=== PATIENT | male | born 1980 | race Caucasian/White ===

== ENCOUNTER 2022-07-30 11:20 | Outpatient (OUT) | payer OTHER, SELFPAY ==
--- NOTE | 2022-07-30 11:21 | XR_ITS ---
The [address] [address] Patient Name: LEONARDO BABIN MRN: [id number] date: 1980 Sex: M Assigned Patient Location: [facility] Current Patient Location: [facility] Accession/Order Number: [id number] Exam Date: 07/30/2022 11:21 Report Date: 07/31/2022 06:36 At the request of: DEMETRIS HERRING Procedure: XR foot LT min 3V PROCEDURE: XR foot LT min 3V HISTORY: LEFT FOOT PAIN COMPARISON: XR foot left 07/16/2022 FINDINGS: BONES:Pinning of the fifth toe with wire extending through the phalanges and into the neck of the fifth metatarsal. Stable alignment and suspected ongoing bone healing of fractures at the neck of third and fourth metatarsals. Stable, separate ossification at base of fifth metatarsal; ununited secondary ossification center versus sequela of remote fracture. SOFT TISSUES:Mild dorsal lateral soft tissue swelling. EFFUSION:None visible. OTHER: Negative. IMPRESSION: 1. Stable wire fixation of the fifth toe. 2. Stable healing fractures and chronic changes. Electronically authenticated by: LAYTON SMALL Date: 07/31/2022 06:36
== END 2022-07-30 11:21 ==
LOC: RAD 11:20
PROVIDERS: PCP Family Medicine; Visit Provider Physician Assistant
DX: S97.82XS Crushing injury of left foot, sequela (principal); S92.332S Displaced fracture of third metatarsal bone, left foot, sequela; S92.342S Displaced fracture of fourth metatarsal bone, left foot, sequela; S92.352S Displaced fracture of fifth metatarsal bone, left foot, sequela; X58.XXXS Exposure to other specified factors, sequela
CPT/HCPCS: 73630

== ENCOUNTER 2022-08-20 10:50 | Outpatient (OUT) | payer OTHER, SELFPAY ==
--- NOTE | 2022-08-20 10:51 | XR_ITS ---
The [address] [address] Patient Name: LEONARDO BABIN MRN: [id number] date: 1980 Sex: M Assigned Patient Location: [facility] Current Patient Location: [facility] Accession/Order Number: [id number] Exam Date: 08/20/2022 10:53 Report Date: 08/20/2022 12:28 At the request of: VIKI DURAN Procedure: XR foot LT min 3V EXAM: XR foot LT min 3V HISTORY: LEFT FOOT PAIN COMPARISON: 08/11/2022. TECHNIQUE: 3 views left foot. FINDINGS/IMPRESSION: Stable alignment and position of left third, fourth metatarsal neck fractures. Slight increase continued healing, with probable developing ununited fragment at the lateral margin of the fourth. Removal of K wire from the left fifth digit with mild residual osteopenia at the fifth metatarsal head. No displaced fracture. Fifth metatarsal base deformity is again seen with increasing cortication along the margins of the fragments with ununited base. No other interval acute process. Electronically authenticated by: CHONG GARAY Date: 08/20/2022 12:28
== END 2022-08-20 10:51 | disposition home or self-care (01) ==
LOC: RAD 10:51
PROVIDERS: PCP Family Medicine; Visit Provider Physician Assistant
DX: S97.82XS Crushing injury of left foot, sequela (principal)
CPT/HCPCS: 73630

== ENCOUNTER 2022-09-24 15:23 | Outpatient (OUT) | payer OTHER, SELFPAY ==
--- NOTE | 2022-09-24 15:25 | XR_ITS ---
The [address] [address] Patient Name: LEONARDO BABIN MRN: [id number] date: 1980 Sex: M Assigned Patient Location: [facility] Current Patient Location: Accession/Order Number: [id number] Exam Date: 09/24/2022 15:30 Report Date: 09/25/2022 07:53 At the request of: VIKI DURAN Procedure: XR foot LT min 3V PROCEDURE: XR foot LT min 3V COMPARISON: 08/20/2022 HISTORY: LEFT FOOT PAIN FINDINGS: BONES:Stable fractures involving the neck of the third and fourth metatarsals. Stable transverse intra-articular fracture base of the fifth metatarsal with no interval bony bridging. Stable fracture dorsal proximal navicular. SOFT TISSUES:Negative. No visible soft tissue swelling. EFFUSION:None visible. OTHER: Negative. XR/XR foot LT min 3V IMPRESSION: Multiple stable fractures as detailed above Electronically authenticated by: LAUREN BAÑUELOS Date: 09/25/2022 07:53
== END 2022-09-24 15:24 | disposition home or self-care (01) ==
LOC: RAD 15:23
PROVIDERS: PCP Family Medicine; Visit Provider Physician Assistant
DX: S92.332D Displaced fracture of third metatarsal bone, left foot, subsequent encounter for fracture with routine healing (principal); S92.342D Displaced fracture of fourth metatarsal bone, left foot, subsequent encounter for fracture with routine healing; S92.352D Displaced fracture of fifth metatarsal bone, left foot, subsequent encounter for fracture with routine healing; S92.252D Displaced fracture of navicular [scaphoid] of left foot, subsequent encounter for fracture with routine healing; X58.XXXD Exposure to other specified factors, subsequent encounter
CPT/HCPCS: 73630

== ENCOUNTER 2022-09-29 17:44 | Outpatient (REF) | payer OTHER, SELFPAY | END 2022-09-29 17:45 | disposition home or self-care (01) | LOC: LAB 17:44 | PROVIDERS: PCP Family Medicine; Visit Provider Family Medicine | DX: T63.301A Toxic effect of unspecified spider venom, accidental (unintentional), initial encounter (principal); L03.90 Cellulitis, unspecified | CPT/HCPCS: 87070; 87150; 87186 ==

== ENCOUNTER 2022-12-11 09:02 | Outpatient (OUT) | payer OTHER, SELFPAY ==
--- NOTE | 2022-12-11 | XR_ITS ---
The [address] [address] Patient Name: LEONARDO BABIN MRN: [id number] date: 1980 Sex: M Assigned Patient Location: [facility] Current Patient Location: [facility] Accession/Order Number: [id number] Exam Date: 12/11/2022 09:04 Report Date: 12/11/2022 15:18 At the request of: SAYDA NORWOOD Procedure: XR foot LT min 3V STUDY: XR foot LT min 3V, [id number] HISTORY: LEFT FOOT PAIN COMPARISON: Left foot x-rays 09/24/2022, 08/20/2022. CT of the left foot for 08/11/2022. FINDINGS: Alignment at the healed fractures of the heads of the third and fourth metatarsals, similar. 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 Small focus of ossification along the medial aspect head of the fifth metatarsal, similar. Unfused dorsal navicular ossicle, similar. 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 No new or worsening osseous abnormality demonstrated. XR/XR foot LT min 3V IMPRESSION: Similar appearance of the left foot compared with 09/24/2022. Electronically authenticated by: AHMET STEWART Date: 12/11/2022 15:18
== END 2022-12-11 09:03 | disposition home or self-care (01) ==
LOC: RAD 09:02
PROVIDERS: PCP Family Medicine; Visit Provider Podiatrist Foot & Ankle Surgery
DX: S97.82XS Crushing injury of left foot, sequela (principal); M79.672 Pain in left foot
CPT/HCPCS: 73630

== ENCOUNTER 2023-05-15 07:58 | Outpatient (OUT) | payer OTHER, SELFPAY ==
--- OUTSIDE RECORDS SUMMARY | 2023-05-15 08:03 | XMS_ITS | CCD ---
Author Organization [facility] Care Team Providers Care Motion Study Technician Name Role Phone ANNIE ., DR PETERSEN Primary Care Unavailable MISC, DR MUNOZ Attending Unavailable MISC, DR MUNOZ Admitting Unavailable SAYDA NORWOOD Consulting Unavailable HOY ., DR PETERSEN Primary Care Unavailable SAYDA NORWOOD Attending Unavailable MARYANDER PETER Estrada Admitting Unavailable WEST, DR LAUREN Andrews Consulting Unavailable HOY ., DR PETERSEN Primary Care Unavailable HIGHLANDERSAYDA Attending Unavailable HIGHLANDER PETER Estrada Admitting Unavailable HIGHLANDERSAYDA Consulting Unavailable RAKEL ANGELES Consulting Unavailable NEVAEH ., DEMETRIS BRODERICK Consulting Unavailable SHARP, KATELYN Consulting Unavailable TENA II, CARLOS Consulting Unavailable MERGIUSEPPE PARKER Consulting Unavailable MISC, DR MUNOZ Consulting Unavailable ANNIE ., DR PETERSEN Primary Care Unavailable MISC, DR MUNOZ Attending Unavailable MISC, DR MUNOZ Admitting Unavailable HOY ., DR PETERSEN Consulting Unavailable HOY ., DR PETERSEN Primary Care Unavailable HOY ., DR PETERSEN Attending Unavailable HOY ., DR PETERSEN Admitting Unavailable HOY ., DR PETERSEN Consulting Unavailable HOY ., DR PETERSEN Primary Care Unavailable HOY ., DR PETERSEN Attending Unavailable HOY ., DR PETERSEN Admitting Unavailable WEST, DR LAUREN Andrews Consulting Unavailable HOY ., DR PETERSEN Primary Care Unavailable JESUS VALDEZ Attending Unavailable JESUS VALDEZ Admitting Unavailable ZIEBCECIL, DR LAYTON Mari Consulting Unavailable JESUS VALDEZ Consulting Unavailable VIKI DURAN Attending Unavailable VIKI DURAN Admitting Unavailable HOY ., DR PETERSEN Primary Care Unavailable ZIEBER, DR LAYTON Mari Consulting Unavailable HOY ., DR PETERSEN Primary Care Unavailable VIKI DURAN Attending Unavailable VIKI DURAN Admitting Unavailable VIKI DURAN Consulting Unavailable MISC, DR MUNOZ Consulting Unavailable HORajwinder ., DR PETERSEN Primary Care Unavailable MISC, DR DOCTOR Attending Unavailable MISNanette, DR MUNOZ Admitting Unavailable DR LAYTON SMALL Consulting Unavailable Allergies Allergy Classification Reported Allergen(s) Allergy Type Date of Onset Reaction(s) Facility (1 source) Cephalexin Drug Allergy [facility] (1 source) Shellfish Drug allergy (disorder) [facility] Problems Active Problems Problem Classification Problem Date Documented Da te Episodic/Chronic Crushing injury or internal injury (1 source) Crushing injury of left foot, initial encounter; Translations: [CRUSHING INJURY LEFT FOOT INITIAL] Onset: 07-02-2022 Episodic Essential hypertension (1 source) Essential (primary) hypertension; Translations: [ESSENTIAL PRIMARY HYPERTENSION] Onset: 06-30-2022 Chronic Fracture of lower limb (13 sources) Displaced fracture of fifth metatarsal bone, left foot, initial encounter for closed fracture; Translations: [Fracture of unspecified metatarsal bone(s), left foot, initial encounter for closed fracture] Onset: 05-28-2022 Episodic Other lower respiratory disease (4 sources) Interstitial pulmonary disease, unspecified; Translations: [INTERSTITIAL PULMONARY DISEASE UNS] Onset: 08-09-2021 Chronic Unclassified (3 sources) CONTACT W/AND (SUSP) EXPOS COVID-19; Translations: [CONTACT W/AND (SUSP) EXPOS COVID-19] Onset: 01-19-2022 Unclassified (1 source) POST COVID-19 CONDITION UNSPECIFIED; Translations: [POST COVID-19 CONDITION UNSPECIFIED] Onset: 09-04-2021 Past or Other Problems Problem Classification Problem Date Documented Da te Episodic/Chronic Other lower respiratory disease (5 sources) Dyspnea, unspecified; Translations: [DYSPNEA UNSPECIFIED] Onset: 09-03-2021 Episodic Other screening for suspected conditions (not mental disorders or infectious disease) (1 source) Encounter for screening for malignant neoplasm of prostate; Translations: [ENC SCREEN MALIG NEOPLASM PROSTATE] Onset: 01-14-2022 Episodic Unclassified (1 source) CONTACT W/AND (SUSP) EXPOS COVID-19; Translations: [CONTACT W/AND (SUSP) EXPOS COVID-19] Onset: 01-14-2022 Results Test Name Value Interpretation Reference Range Facility CBC AUTO DIFFon 06-25-2022 BASO # 0.0 103/ul Normal 0.0-0.1 [facility] Comment on above: Performed By: #### C BC #### [facility] [address] [address] [address] Yanira Avery Basophils/100 WBC (Bld) 0.4 % Normal 0.2-2.0 [facility] Comment on above: Performed By: #### C BC #### [facility] [address] [address] [address] Yanira Avery EO # 0.1 103/ul Normal 0.0-0.7 [facility] Comment on above: Performed By: #### C BC #### [facility] [address] [place] [address] Dr. Yanira Avery Eosinophils/100 WBC (Bld) 1.3 % Normal 0.9-7.0 [facility] Comment on above: Performed By: #### C BC #### [facility] [address] [place] [address] Dr. Yanira Avery Erythrocyte distribution width (RBC) [Ratio] 12.3 % Normal 11.0-15.0 [facility] Comment on above: Performed By: #### C BC #### [facility] [address] [place] [address] Dr. Yanira Avery Hematocrit (Bld) [Volume fraction] 47.0 % Normal 42.0-54.0 [facility] Comment on above: Performed By: #### C BC #### [facility] [address] [place] [address] Dr. Yanira Avery Hemoglobin (Bld) [Mass/Vol] 16.3 g/dL Normal 14.0-18.0 [facility] Comment on above: Performed By: #### C BC #### [facility] [address] [place] [address] Dr. Yanira Avery IG # 0.01 10e3/ul Normal 0.00-0.03 [facility] Comment on above: Performed By: #### C BC #### [facility] [address] [place] [address] Dr. Yanira Avery IG % 0.1 % Normal 0.0-0.5 [facility] Comment on above: Performed By: #### C BC #### [facility] [address] [place] [address] Dr. Yanira Avery LYMPH # 1.9 103/ul Normal 1.2-3.8 [facility] Comment on above: Performed By: #### C BC #### [facility] [address] [place] [address] Dr. Yanira Avery Lymphocytes/100 WBC (Bld) 26.6 % Normal 20.5-60.0 [facility] Comment on above: Performed By: #### C BC #### [facility] [address] [place] [address] Dr. Yanira Avery MANUAL DIFF REQ NO Normal [facility] Comment on above: Performed By: #### C BC #### [facility] [address] [place] [address] Dr. Yanira Avery MCH (RBC) [Entitic mass] 30.3 pg Normal 25.9-34.0 [facility] Comment on above: Performed By: #### C BC #### [facility] [address] [place] [address] Dr. Yanira Avery MCHC (RBC) [Mass/Vol] 34.7 g/dL Normal 29.9-35.2 [facility] Comment on above: Performed By: #### C BC #### [facility] [address] [place] [address] Dr. Yanira Avery MCV (RBC) [Entitic vol] 87.4 fL Normal 80.0-94.0 [facility] Comment on above: Performed By: #### C BC #### [facility] [address] [place] [address] Dr. Yanira Avery MONO # 0.5 103/ul Normal 0.3-0.8 [facility] Comment on above: Performed By: #### C BC #### [facility] [address] [place] [address] Dr. Yanira Avery Monocytes/100 WBC (Bld) 7.5 % Normal 1.7-12.0 [facility] Comment on above: Performed By: #### C BC #### [facility] [address] [address] [address] Yanira Avery NEUT # 4.5 103/ul Normal 1.4-6.5 [facility] Comment on above: Performed By: #### C BC #### [facility] [address] [address] [address] Yanira Avery Neutrophils/100 WBC (Bld) 64.1 % Normal 43.0-75.0 [facility] Comment on above: Performed By: #### C BC #### [facility] [address] [place] [address] Dr. Yanira Avery Platelet mean volume (Bld) [Entitic vol] 9.9 fL Normal 9.5-13.5 [facility] Comment on above: Performed By: #### C BC #### [facility] [address] [place] [address] Dr. Yanira Avery PLT 264 103/ul Normal 150-450 [facility] Comment on above: Performed By: #### C BC #### [facility] [address] [place] [address] Dr. Yanira Avery RBC 5.38 106/ul Normal 4.70-6.10 [facility] Comment on above: Performed By: #### C BC #### [facility] [address] [place] [address] Dr. Yanira Avery WBC 7.0 103/ul Normal 4.0-11.0 [facility] Comment on above: Performed By: #### C BC #### [facility] [address] [place] [address] Dr. Yanira Avery POINT OF CARE GLUCOSEon 05-0 Glucose [Mass/Vol] 98 mg/dL Normal 74-106 [facility] Comment on above: Performed By: #### A 1C #### [facility] [address] [place] [address] Dr. Yanira Avery Glucose [Mass/Vol] 97 mg/dL Normal 74-106 [facility] Comment on above: Performed By: #### P OCGLUC #### [facility] [address] [place] [address] Dr. Yanira Avery XR FOOT LT 2Von 06-25-2022 XR FOOT LT 2V EXAM: XR FOOT LT 2V HISTORY: Pain COMPARISON: 06/18/2022 TECHNIQUE: 1 minute and 7 seconds of fluoroscopy. 11 images 67.7 seconds of fluoroscopy FINDINGS: Interval reduction and pinning of the fourth metatarsal phalangeal joint dislocation. Stable fractures head of the third and fourth metatarsals IMPRESSION: Reduction and pinning of the fifth metatarsal phalangeal joint dislocation Electronically authenticated by: LAUREN BAÑUELOS Date: 2022-06-25 18:09 Normal [facility] PROF CHEM 8 (BAS METB)on Anion gap [Moles/Vol] 11.6 mmol/L Normal [facility] Comment on above: Performed By: #### A 1C #### [facility] [address] [place] [address] Dr. Yanira Avery Calcium [Mass/Vol] 9.7 mg/dL Normal 8.5-10.1 [facility] Comment on above: Performed By: #### A 1C #### [facility] [address] [place] [address] Dr. Yanira Avery Chloride [Moles/Vol] 102 mmol/L Normal 98-107 [facility] Comment on above: Performed By: #### A 1C #### [facility] [address] [place] [address] Dr. Yanira Avery CO2 [Moles/Vol] 30.9 mmol/L Normal 21.0-32.0 [facility] Comment on above: Performed By: #### A 1C #### [facility] [address] [place] [address] Dr. Yanira Avery Creatinine [Mass/Vol] 1.04 mg/dL Normal 0.70-1.30 [facility] Comment on above: Performed By: #### A 1C #### [facility] [address] [place] [address] Dr. Yanira Avery EGFR-AF ALBANIAN >60 Normal >=60 [facility] Comment on above: Performed By: #### A 1C #### [facility] [address] [place] [address] Dr. Yanira Avery EGFR-NON AF ALBANIAN >60 Normal >=60 [facility] Comment on above: Performed By: #### A 1C #### [facility] [address] [place] [address] Dr. Yanira Avery Glucose [Mass/Vol] 103 mg/dL Normal 74-106 [facility] Comment on above: Performed By: #### A 1C #### [facility] [address] [place] [address] Dr. Yanira Avery Potassium [Moles/Vol] 4.5 mmol/L Normal 3.5-5.1 [facility] Comment on above: Performed By: #### A 1C #### [facility] [address] [place] [address] Dr. Yanira Avery Sodium [Moles/Vol] 140 mmol/L Normal 136-145 [facility] Comment on above: Performed By: #### A 1C #### [facility] [address] [place] [address] Dr. Yanira Avery Urea nitrogen [Mass/Vol] 14.0 mg/dL Normal 7.0-18.0 [facility] Comment on above: Performed By: #### A 1C #### [facility] [address] [place] [address] Dr. Yanira Avery Urea nitrogen/Creatinine [Mass ratio] 13.5 mg/mg Normal [facility] Comment on above: Performed By: #### A 1C #### [facility] [address] [place] [address] ANKLE LT WO CONon 023 CT ANKLE LT WO CON EXAMINATION: CT FOOT LT WO CON, CT ANKLE LT WO CON HISTORY: Crushing injury COMPARISON: XR foot left 05/28/2022 TECHNIQUE: Multi-planar CT images were created without IV contrast. Dose reduction techniques were achieved by using automated exposure control and/or adjustment of mA and/or kV according to patient size and/or use of iterative reconstruction technique. FINDINGS: BONES: Nonspecific fracture involving anterior inferior lateral corner of the cuboid. Nondisplaced acute fracture across the neck of second and third metatarsals. Mildly angulated fracture involving the neck of the fourth metatarsal. Dorsal dislocation of the fifth proximal phalanx in relation to the head of the fifth metatarsal. SOFT TISSUES: Mild soft tissue swelling and edema throughout the foot. No radiopaque foreign body. EFFUSION: None visible. OTHER: Negative. IMPRESSION: 1. Multifocal fractures as detailed above. 2. Dorsal dislocation of the fifth metatarsophalangeal joint. 3. Multifocal soft tissue swelling and edema. Electronically authenticated by: LAYTONJESSE SMALL Date: 2022-05-28 13:09 Normal [facility] Covid-19 PCR (CVDTB)on 12-24 SARS-CoV-2 (COVID-19) RNA EM+probe Ql (Unsp spec) Not detected Normal NOT DETECTED [facility] Comment on above: Result Comment: This test is not yet approved or cleared by the [place] FDA. When there are no FDA-approved or cleared tests available, and other criteria are met, FDA can make tests available under an emergency access mechanism called an Emergency Use Authorization (EUA). The EUA for this test is supported by the [employer] Controller of Health and Human Service's (HHS's) declaration that circumstances exist to justify the emergency use of in vitro diagnostics for the detection and/or diagnosis of the virus that causes COVID-19. This EUA will remain in effect (meaning this test can be used) for the duration of the COVID-19 declaration justifying emergency of IVDs, unless it is terminated or revoked by FDA (after which the test may no longer be used). When diagnostic testing is negative, the possibility of a false negative should be considered in the context of a patient's recent exposures and the presence of clinical signs and symptoms consistent with SARS-CoV-2. Performed By: #### C VDTBH #### [facility] [address] [place] [address] Dr. Yanira Avery INFLUENZA A AND B AGon 01-14 INFLUANEGH SEE BELOW Normal [facility] Comment on above: Result Comment: Nega tive for Flu A protein angiten. Infection due to Flu A cannot be ruled out. Flu A angiten in the sample may be below the detection limit of the test. Performed By: #### I NFLUAB #### [facility] [address] [place] [address] Dr. Yanira Avery [facility] SEE BELOW Normal [facility] Comment on above: Result Comment: Nega tive for Flu B protein antigen. Infection due to Flu B cannot be ruled out. Flu B antigen in the sample may be below the detection limit of the test. Performed By: #### I NFLUAB #### [facility] [address] [place] [address] Dr. Yanira Avery INFLUENZA A AG Negative Normal NEGATIVE SEE COMMENT [facility] Comment on above: Performed By: #### I NFLUAB #### [facility] [address] [place] [address] Dr. Yanira Avery INFLUENZA B AG Negative Normal NEGATIVE SEE COMMENT [facility] Comment on above: Performed By: #### I NFLUAB #### [facility] [address] [place] [address] Dr. Yanira Avery INTERNAL CONTROLS Within Normal Limits Normal Wi thin Normal Limits [facility] Comment on above: Performed By: #### I NFLUAB #### [facility] [address] [place] [address] Dr. Yanira Avery INSULINon 01-12-2022 Insulin 18.3 uIU/mL Normal 2.6-24.9 [facility] Comment on above: Performed By: #### I NSULIN #### [facility] [address] [place] [address] Dr. Yanira Avery CBC AUTO DIFFon 01-10-2022 BASO # 0.0 103/ul Normal 0.0-0.1 [facility] Comment on above: Performed By: #### C BC #### [facility] [address] [place] [address] Dr. Yanira Avery Basophils/100 WBC (Bld) 0.3 % Normal 0.2-2.0 [facility] Comment on above: Performed By: #### C BC #### [facility] [address] [place] [address] Dr. Yanira Avery EO # 0.1 103/ul Normal 0.0-0.7 [facility] Comment on above: Performed By: #### C BC #### [facility] [address] [place] [address] Dr. Yanira Avery Eosinophils/100 WBC (Bld) 1.4 % Normal 0.9-7.0 [facility] Comment on above: Performed By: #### C BC #### [facility] [address] [place] [address] Dr. Yanira Avery Erythrocyte distribution width (RBC) [Ratio] 12.3 % Normal 11.0-15.0 [facility] Comment on above: Performed By: #### C BC #### [facility] [address] [place] [address] Dr. Yanira Avery Hematocrit (Bld) [Volume fraction] 44.4 % Normal 42.0-54.0 [facility] Comment on above: Performed By: #### C BC #### [facility] [address] [place] [address] Dr. Yanira Avery Hemoglobin (Bld) [Mass/Vol] 15.5 g/dL Normal 14.0-18.0 [facility] Comment on above: Performed By: #### C BC #### [facility] [address] [place] [address] Dr. Yanira Avery IG # 0.02 10e3/ul Normal 0.00-0.03 [facility] Comment on above: Performed By: #### C BC #### [facility] [address] [place] [address] Dr. Yanira Avery IG % 0.3 % Normal 0.0-0.5 [facility] Comment on above: Performed By: #### C BC #### [facility] [address] [place] [address] Dr. Yanira Avery LYMPH # 2.0 103/ul Normal 1.2-3.8 [facility] Comment on above: Performed By: #### C BC #### [facility] [address] [place] [address] Dr. Yanira Avery Lymphocytes/100 WBC (Bld) 31.3 % Normal 20.5-60.0 [facility] Comment on above: Performed By: #### C BC #### [facility] [address] [place] [address] Dr. Yanira Avery MANUAL DIFF REQ NO Normal [facility] Comment on above: Performed By: #### C BC #### [facility] [address] [place] [address] Dr. Yanira Avery MCH (RBC) [Entitic mass] 30.5 pg Normal 25.9-34.0 [facility] Comment on above: Performed By: #### C BC #### [facility] [address] [place] [address] Dr. Yanira Avery MCHC (RBC) [Mass/Vol] 34.9 g/dL Normal 29.9-35.2 [facility] Comment on above: Performed By: #### C BC #### [facility] [address] [place] [address] Dr. Yanira Avery MCV (RBC) [Entitic vol] 87.4 fL Normal 80.0-94.0 [facility] Comment on above: Performed By: #### C BC #### [facility] [address] [place] [address] Dr. Yanira Avery MONO # 0.5 103/ul Normal 0.3-0.8 [facility] Comment on above: Performed By: #### C BC #### [facility] [address] [place] [address] Dr. Yanira Avery Monocytes/100 WBC (Bld) 8.0 % Normal 1.7-12.0 [facility] Comment on above: Performed By: #### C BC #### [facility] [address] [place] [address] Dr. Yanira Avery NEUT # 3.7 103/ul Normal 1.4-6.5 [facility] Comment on above: Performed By: #### C BC #### [facility] [address] [place] [address] Dr. Yanira Avery Neutrophils/100 WBC (Bld) 58.7 % Normal 43.0-75.0 [facility] Comment on above: Performed By: #### C BC #### [facility] [address] [place] [address] Dr. Yanira Avery Platelet mean volume (Bld) [Entitic vol] 10.0 fL Normal 9.5-13.5 [facility] Comment on above: Performed By: #### C BC #### [facility] [address] [place] [address] Dr. Yanira Avery PLT 237 103/ul Normal 150-450 [facility] Comment on above: Performed By: #### C BC #### [facility] [address] [place] [address] Dr. Yanira Avery RBC 5.08 106/ul Normal 4.70-6.10 [facility] Comment on above: Performed By: #### C BC #### [facility] [address] [place] [address] Dr. Yanira Avery WBC 6.2 103/ul Normal 4.0-11.0 [facility] Comment on above: Performed By: #### C BC #### [facility] [address] [place] [address] Dr. Yanira Avery FREE T3on 01-10-2022 FREE T3 3.68 pg/mlL Normal 2.18-3.98 [facility] Comment on above: Performed By: #### A 1C #### [facility] [address] [place] [address] Dr. Yanira Avery GLYCOHEMOGLOBIN A1Con 2021 ADA RECOMMENDATION SEE BELOW Normal [facility] Comment on above: Result Comment: ADA RECOMMENDED LIMIT 4.0 - 6.0 ADA THERAPEUTIC TARGET < 7.0 ACTION SUGGESTED > 7.0 Performed By: #### A 1C #### [facility] [address] [place] [address] Dr. Yanira Avery Glucose [Mass/Vol] 117 mg/dL Normal [facility] Comment on above: Performed By: #### A 1C #### [facility] [address] [place] [address] Dr. Yanira Avery HbA1c (Bld) [Mass fraction] 5.7 % Normal 4.5-6.2 [facility] Comment on above: Performed By: #### A 1C #### [facility] [address] [address] [address] Yanira Avery LIPID PROFILEon 01-10-2022 CHOL-HDL RATIO NORM SEE BELOW Normal [facility] Comment on above: Result Comment: 3.3 - 4.4 LOW RISK 4.4 - 7.1 AVERAGE RISK 7.1 - 11.0 MODERATE RISK >11.0 HIGH RISK Performed By: #### A 1C #### [facility] [address] [address] [address] Yanira Avery Cholesterol [Mass/Vol] 187 mg/dL Normal <=200 [facility] Comment on above: Performed By: #### A 1C #### [facility] [address] [address] [address] Yanira Avery Cholesterol in HDL [Mass/Vol] 43 mg/dL Normal 40-60 [facility] Comment on above: Performed By: #### A 1C #### [facility] [address] [address] [address] Yanira Avery Cholesterol in LDL [Mass/Vol] 115.0 mg/dL Normal [facility] Comment on above: Performed By: #### A 1C #### [facility] [address] [address] [address] Yanira Avery Cholesterol.total/Ch olesterol in HDL [Mass ratio] 4.3 {ratio} Normal [facility] Comment on above: Performed By: #### A 1C #### [facility] [address] [address] [address] Yanira Avery HDL NORMAL > or = 60 mg/dl - LO W CARDIOVASCULAR RISK <40 mg/dl - HIGH CARDIOVASCULAR RISK Normal [facility] Comment on above: Performed By: #### A 1C #### [facility] [address] [address] [address] Yanira Avery LDL CALC NORMAL SEE BELOW Normal [facility] Comment on above: Result Comment: <100 mg/dl OPTIMAL 100 - 129 mg/dl NEAR OR ABOVE OPTIMAL 130 - 159 mg/dl BORDERLINE HIGH 160 - 189 mg/dl HIGH >190 mg/dl VERY HIGH Performed By: #### A 1C #### [facility] [address] [address] [address] Yanira Avery Triglyceride [Mass/Vol] 145 mg/dL Normal <=150 [facility] Comment on above: Performed By: #### A 1C #### [facility] [address] [place] [address] Dr. Yanira Avery VLDL CALC 29.0 mg/dL Normal [facility] Comment on above: Performed By: #### A 1C #### [facility] [address] [place] [address] Dr. Yanira Avery PROF 14(COMP METB)on 022 Albumin [Mass/Vol] 3.9 g/dL Normal 3.4-5.0 [facility] Comment on above: Performed By: #### A 1C #### [facility] [address] [place] [address] Dr. Yanira Avery Albumin/Globulin [Mass ratio] 1.1 {ratio} Normal [facility] Comment on above: Performed By: #### A 1C #### [facility] [address] [place] [address] Dr. Yanira Avery ALP [Catalytic activity/Vol] 89 U/L Normal 46-116 [facility] Comment on above: Performed By: #### A 1C #### [facility] [address] [place] [address] Dr. Yanira Avery ALT [Catalytic activity/Vol] 28 U/L Normal 16-63 [facility] Comment on above: Performed By: #### A 1C #### [facility] [address] [place] [address] Dr. Yanira Avery Anion gap [Moles/Vol] 9.5 mmol/L Normal [facility] Comment on above: Performed By: #### A 1C #### [facility] [address] [place] [address] Dr. Yanira Avery AST [Catalytic activity/Vol] 13 U/L Critically low 15-37 [facility] Comment on above: Performed By: #### A 1C #### [facility] [address] [place] [address] Dr. Yanira Avery Bilirubin [Mass/Vol] 0.6 mg/dL Normal 0.2-1.0 [facility] Comment on above: Performed By: #### A 1C #### [facility] [address] [address] [address] Yanira Avery Calcium [Mass/Vol] 9.2 mg/dL Normal 8.5-10.1 [facility] Comment on above: Performed By: #### A 1C #### [facility] [address] [address] [address] Yanira Avery Chloride [Moles/Vol] 103 mmol/L Normal 98-107 [facility] Comment on above: Performed By: #### A 1C #### [facility] [address] [address] [address] Yanira Avery CO2 [Moles/Vol] 30.7 mmol/L Normal 21.0-32.0 [facility] Comment on above: Performed By: #### A 1C #### [facility] [address] [place] [address] Dr. Yanira Avery Creatinine [Mass/Vol] 0.88 mg/dL Normal 0.70-1.30 [facility] Comment on above: Performed By: #### A 1C #### [facility] [address] [place] [address] Dr. Yanira Avery EGFR-AF ALBANIAN >60 Normal >=60 [facility] Comment on above: Performed By: #### A 1C #### [facility] [address] [place] [address] Dr. Yanira Avery EGFR-NON AF ALBANIAN >60 Normal >=60 [facility] Comment on above: Performed By: #### A 1C #### [facility] [address] [place] [address] Dr. Yanira Avery Globulin (S) [Mass/Vol] 3.4 g/dL Normal [facility] Comment on above: Performed By: #### A 1C #### [facility] [address] [place] [address] Dr. Yanira Avery Glucose [Mass/Vol] 109 mg/dL Critically high 74-106 [facility] Comment on above: Performed By: #### A 1C #### [facility] [address] [address] [address] Yanira Avery Potassium [Moles/Vol] 4.2 mmol/L Normal 3.5-5.1 [facility] Comment on above: Performed By: #### A 1C #### [facility] [address] [address] [address] Yanira Avery Protein [Mass/Vol] 7.3 g/dL Normal 6.4-8.2 [facility] Comment on above: Performed By: #### A 1C #### [facility] [address] [address] [address] Yanira Avery Sodium [Moles/Vol] 139 mmol/L Normal 136-145 [facility] Comment on above: Performed By: #### A 1C #### [facility] [address] [address] [address] Yanira Avery Urea nitrogen [Mass/Vol] 12.0 mg/dL Normal 7.0-18.0 [facility] Comment on above: Performed By: #### A 1C #### [facility] [address] [address] [address] Yanira Avery Urea nitrogen/Creatinine [Mass ratio] 13.6 mg/mg Normal [facility] Comment on above: Performed By: #### A 1C #### [facility] [address] [address] [address] Yanira Avery T4on 01-10-2022 T4 [Mass/Vol] 9.20 ug/dL Normal 4.50-12.10 [facility] Comment on above: Performed By: #### A 1C #### [facility] [address] [address] [address] Yanira Avery TSHon 01-10-2022 TSH 1.194 uIU/mL Normal 0.358-3.740 [facility] Comment on above: Performed By: #### A 1C #### [facility] [address] [address] [address] Yanira Avery HEMOGLOBINon 09-03-2021 Hemoglobin (Bld) [Mass/Vol] 15.2 g/dL Normal 14.0-18.0 [facility] Comment on above: Performed By: #### H GB #### [facility] [address] [address] CHEST WO CONon 08-11-2021 CT CHEST WO CON EXAMINATION: CT CHES T WO CON HISTORY: Interstitial lung disease COMPARISON: CTA chest 02/10/2021 TECHNIQUE: Axial, Coronal, and Sagittal images were created without the administration of IV contrast material. Dose reduction techniques were achieved by using automated exposure control and/or adjustment of mA and/or kV according to patient size and/or use of iterative reconstruction technique. FINDINGS: LUNGS: Thin curvilinear stranding opacities an occasional patchy opacities throughout the lungs in areas of the previously seen dense infiltrates which are suspected to represent scarring. PLEURA: No mass, effusion, or pneumothorax. VASCULATURE: No abnormality. ENRIQUETA: No mass or adenopathy. MEDIASTINUM: No mass or adenopathy. CARDIAC: No enlargement or pericardial thickening. AORTA: No aneurysm or dissection. CHEST WALL: No mass or axillary adenopathy. BONES: No bone lesion or fracture. LIMITED ABDOMEN: No suspicious findings. Limited images of the upper abdomen. OTHER: Negative. IMPRESSION: 1. Extensive thin curvilinear stranding opacities throughout the lungs suspected to represent scarring at sites of prior marked infiltrates. Discoid atelectasis and/or residual infiltrates are felt less likely. Electronically authenticated by: LAYTON SMALL Date: 2021-08-11 07:07 Normal [facility] Encounters Encounter Date Encounter Type Care Provider Facility Start: 06-30-2022 Encounter for prepro cedural cardiovascular examination SAYDA NORWOOD [facility] Start: 06-30-2022 Encounter for prepro cedural laboratory examination SAYDA NORWOOD [facility] Start: 06-25-2022 End: 06-25-[address] LAUREN BAÑUELOS Facility:[facility] Start: 06-24-2022 End: 06-25-2022 ambulatory SAYDA NORWOOD Facility:[facility] Start: 06-24-2022 End: 06-25-2022 Encounter for preprocedural cardiovascular examination SAYDA NORWOOD Facility:[facility] Start: 06-18-2022 End: 06-19-[address] LAYTON SMALL Facility:[facility] Start: 05-28-2022 End: 05-29-[address] LAUREN BAÑUELOS Facility:[facility] Start: 01-14-2022 End: 01-14-[address] NICOLA VALENCIA . Facility:[facility] Start: 01-14-2022 Encounter for genera l adult medical examination without abnormal findings DR NICOLA VALENCIA . [facility] Start: 01-10-2022 End: [address] NICOLA VALENCIA . Facility:[facility] Start: 01-10-2022 End: 2022 Encounter for general adult medical examination without abnormal findings DR NICOLA VALENCIA . Facility:[facility] Start: 09-03-2021 End: 09-04-[address] DOCTOR KELLY Facility:[facility] Start: 08-11-2021 End: 08-12-[address] NICOLA VALENCIA . Facility:[facility] Start: 08-09-2021 End: 08-10-[address] DOCTOR KELLY Facility:[facility] Procedures Date Procedure Procedure Detail Performing Clinician Start: 01-10-[address] BERNARDO VALENCIA . Comment on above: Performed By: #### P [facility] #### [facility] [address] [place] [address] Dr. Yanira Avery Plan of Treatment Date Care Activity Detail Author Start: 07-16-2022 ambulatory Ambulatory Facility:[facility] Payers Date Payer Category Payer Unknown [id number] 1978 Unknown [id number] 2..84 [id number] 1978 Unknown [id number] 2.16.84 [id number] 1978 Unknown [id number] 2.16.84 [id number] 1978 Unknown [id number] 2.16.84 [id number] 1978 Unknown [id number] 2.16.84 [id number] 1978 Unknown [id number] 2.16.84 [id number] 1978 Unknown [id number] 2.16.84 [id number] 1978 Unknown [id number] 2.16.84 [id number] 1978 Unknown [id number] 2.16.84 [id number] 1959 Private Health Insurance [id number] 1959 Unknown [id number] Clinical Note 06-25-2022 Note Date & Type Note Facility 06-25-2022 Note PROCEDURE: XR FOOT L T MIN 3 VIEWS COMPARISON: 06/25/2022 HISTORY: Pain FINDINGS: BONES:Interval reduction and pinning of the fifth metatarsal phalangeal joint dislocation. Stable fractures neck of the third and fourth metatarsals. Stable intra-articular fracture base of the fifth metatarsal. Stable likely subacute or chronic fracture medial base of the first distal phalanx SOFT TISSUES:Subcutaneous emphysema EFFUSION:None visible. OTHER: Negative. IMPRESSION: Postsurgical changes with stable fractures as detailed above Electronically authenticated by: LAUREN BAÑUELOS Date: 2022-06-25 18:11 [facility] Clinical Note 06-18-2022 Note Date & Type Note Facility 06-18-2022 Note PROCEDURE: XR FOOT L T MIN 3 VIEWS HISTORY: Pain ; follow-up left foot fractures COMPARISON: XR foot left 05/28/2022, CT foot left 05/28/2022 FINDINGS: BONES:Stable acute, mildly Fractures involving the neck of third and fourth metatarsals. Fracture involving neck of second metatarsal is not visible on today's study. Old, ununited fracture fragment at base of fifth metatarsal. Dorsal dislocation at the fifth metatarsophalangeal joint without appreciable fracture. SOFT TISSUES:No visible soft tissue swelling. EFFUSION:None visible. OTHER: Negative. IMPRESSION: 1. Stable multifocal fractures without appreciable change in alignment or radiographic evidence of early bone healing. Electronically authenticated by: LAYTON SMALL Date: 2022-06-18 14:03 [facility] Clinical Note 05-28-2022 Note Date & Type Note Facility 05-28-2022 Note PROCEDURE: XR ANKLE LT MIN 3 V, XR TIB_FIB LT 2V, XR FOOT LT MIN 3 VIEWS COMPARISON: None. HISTORY: Crushing injury FINDINGS: BONES:Irregular appearance of the inferior medial malleolus with overlying soft tissue swelling. A fracture is suspected. Contour deformity noted along the head of the third and fourth metatarsals consistent with angulated acute fractures. Intra-articular lucency identified at the base of the fifth metatarsal. Lack of overlying soft tissue swelling suggests a chronic injury. Corticated bone fragment along the dorsal proximal navicular, remote injury favored. SOFT TISSUES:Negative. No visible soft tissue swelling. EFFUSION:None visible. OTHER: Negative. IMPRESSION: Acute angulated fractures head of the third and fourth metatarsals Likely remote injuries of the fifth metatarsal and navicular, clinically correlate Possible avulsion fracture inferior medial malleolus Electronically authenticated by: LAUREN BAÑUELOS Date: 2022-05-28 11:04 [facility] Clinical Note 05-28-2022 Note Date & Type Note Facility 05-28-2022 Note PROCEDURE: XR ANKLE LT MIN 3 V, XR TIB_FIB LT 2V, XR FOOT LT MIN 3 VIEWS COMPARISON: None. HISTORY: Crushing injury FINDINGS: BONES:Irregular appearance of the inferior medial malleolus with overlying soft tissue swelling. A fracture is suspected. Contour deformity noted along the head of the third and fourth metatarsals consistent with angulated acute fractures. Intra-articular lucency identified at the base of the fifth metatarsal. Lack of overlying soft tissue swelling suggests a chronic injury. Corticated bone fragment along the dorsal proximal navicular, remote injury favored. SOFT TISSUES:Negative. No visible soft tissue swelling. EFFUSION:None visible. OTHER: Negative. IMPRESSION: Acute angulated fractures head of the third and fourth metatarsals Likely remote injuries of the fifth metatarsal and navicular, clinically correlate Possible avulsion fracture inferior medial malleolus Electronically authenticated by: LAUREN BAÑUELOS Date: 2022-05-28 11:04 [facility] Clinical Note 05-28-2022 Note Date & Type Note Facility 05-28-2022 Note PROCEDURE: XR ANKLE LT MIN 3 V, XR TIB_FIB LT 2V, XR FOOT LT MIN 3 VIEWS COMPARISON: None. HISTORY: Crushing injury FINDINGS: BONES:Irregular appearance of the inferior medial malleolus with overlying soft tissue swelling. A fracture is suspected. Contour deformity noted along the head of the third and fourth metatarsals consistent with angulated acute fractures. Intra-articular lucency identified at the base of the fifth metatarsal. Lack of overlying soft tissue swelling suggests a chronic injury. Corticated bone fragment along the dorsal proximal navicular, remote injury favored. SOFT TISSUES:Negative. No visible soft tissue swelling. EFFUSION:None visible. OTHER: Negative. IMPRESSION: Acute angulated fractures head of the third and fourth metatarsals Likely remote injuries of the fifth metatarsal and navicular, clinically correlate Possible avulsion fracture inferior medial malleolus Electronically authenticated by: LAUREN BAÑUELOS Date: 2022-05-28 11:04 [facility] Summary Purpose Family History No Family History Records Found Advance Directives No Advanced Directives Records Found Additional Source Comments (unrecognized sect ion and content) No Status Records Found INFORMATION SOURCE (unrecogn ized section and content) DATE CREATED AUTHOR 07/06/2022 [facility] FOR RECORDS PERTAINING TO PATIENTS WHO ARE OR HAVE BEEN ENROLLED IN A CHEMICAL DEPENDENCY/SUBSTANCEABUSE PROGRAM, SOME INFORMATION MAY BE OMITTED. This clinical summary was aggregated from multiple sources. Caution should be exercised in using it in the provision of clinical care. This summary normalizes information from multiple sources, and as a consequence, information in this document may materially change the coding, format and clinical context of patient data. In addition, data may be omitted in some cases. CLINICAL DECISIONS SHOULD BE BASED ON THE PRIMARY CLINICAL RECORDS. Directly [facility]. provides no warranty or guarantee of the accuracy or completeness of information in this document.
[2023-05-15 08:22] LABS: Basophils Percent Auto 0.4 % (0.2-2.0); Eosinophils Absolute Auto 0.1 10^3/uL (0.0-0.7); Eosinophils Percent Auto 1.6 % (0.9-7.0); Hematocrit 44.6 % (42.0-54.0); Hemoglobin 15.2 g/dL (14.0-18.0); Immature Granulocytes Abs Auto 0.01 10^3/uL (0.00-0.03); Immature Granulocytes Pct Auto 0.2 % (0.0-0.5); Lymphocytes Percent Auto 34.3 % (20.5-60.0); Mean Corpuscular HGB Conc 34.1 g/dL (29.9-35.2); Mean Corpuscular Volume 90.8 fL (80.0-94.0); Mean Platelet Volume 9.9 fL (9.5-13.5); Monocytes Absolute Auto 0.5 10^3/uL (0.3-0.8); Monocytes Percent Auto 8.1 % (1.7-12.0); Neutrophils Absolute Auto 3.2 10^3/uL (1.4-6.5); Neutrophils Percent Auto 55.4 % (43.0-75.0); Platelet Count 229 10^3/uL (150-450); Red Blood Count 4.91 10^6/uL (4.70-6.10); Red Cell Distribution Width 12.2 % (11.0-15.0); White Blood Count 5.7 10^3/uL (4.0-11.0)
[2023-05-15 08:35] LABS: Estimated Average Glucose 114 mg/dL; Glycohemoglobin A1C 5.6 % (4.5-6.2)
[2023-05-15 09:09] LABS: Alanine Aminotransferase 27 U/L (16-63); Albumin Level 3.7 g/dL (3.4-5.0); Alkaline Phosphatase 78 U/L (46-116); Aspartate Amino Transferase 15 U/L (15-37); BUN Creatinine Ratio 11.5; Bilirubin Total 0.6 mg/dL (0.2-1.0); Carbon Dioxide 31.4 mmol/L (21.0-32.0); Chloride 103 mmol/L (98-107); Chol HDL Ratio 4.4; Cholesterol 190 mg/dL (<=200); Estimated GFR (African America >60 (>=60); Estimated GFR (Non-African Ame >60 (>=60); Free T3 3.04 pg/mL (2.18-3.98); Globulin 3.8 g/dL; Glucose 104 mg/dL (74-106); HDL Cholesterol 43 mg/dL (40-60); Potassium 4.4 mmol/L (3.5-5.1); Sodium 141 mmol/L (136-145); Thyroid Stimulating Hormone 1.524 uIU/mL (0.358-3.740); Total Protein 7.5 g/dL (6.4-8.2); Triglycerides 107 mg/dL (<=150); VLDL CHOLESTEROL 21.4 mg/dL
[2023-05-15 09:32] LABS: Prostate Specific Antigen Scrn 0.25 ng/mL (<=4.00)
== END 2023-05-15 07:59 | disposition home or self-care (01) ==
LOC: LAB 08:00
PROVIDERS: PCP Family Medicine; Visit Provider Family Medicine
DX: Z00.00 Encounter for general adult medical examination without abnormal findings (principal)
CPT/HCPCS: 36415; 80053; 80061; 83036; 84436; 84443; 84481; 85025; G0103

== ENCOUNTER 2023-09-20 15:23 | Outpatient (REF) | payer OTHER, SELFPAY ==
--- OUTSIDE RECORDS SUMMARY | 2023-09-20 15:38 | XMS_ITS | CCD ---
Author Organization [facility] Care Team Providers Care Metaphysics Teacher Name Role Phone ANNIE Robles, DR PETERSEN Primary Care Unavailable MISC, DR MUNOZ Attending Unavailable MISC, DR MUNOZ Admitting Unavailable SAYDA NORWOOD Consulting Unavailable ANNIE ., DR PETERSEN Primary Care Unavailable SAYDA NORWOOD Attending Unavailable [facility] PETER Estrada Admitting Unavailable WEST, DR LAUREN Andrews Consulting Unavailable HOY ., DR PETERSEN Primary Care Unavailable SAYDA NORWOOD Attending Unavailable [facility] PETER Estrada Admitting Unavailable SAYDA NORWOOD Consulting Unavailable RAKEL ANGELES Consulting Unavailable NEVAEH ., DEMETRIS BRODERICK Consulting Unavailable SHARPKATELYN Consulting Unavailable TENA II, CARLOS Consulting Unavailable GIUSEPPE DEL ANGEL Consulting Unavailable MISC, DR MUNOZ Consulting Unavailable HORajwinder ., DR PETERSEN Primary Care Unavailable MISC, DR MUNOZ Attending Unavailable MISC, DR MUNOZ Admitting Unavailable HORajwinder ., DR PETERSEN Consulting Unavailable HOY ., [...] VALDEZ Attending Unavailable JESUS VALDEZ Admitting Unavailable ZISASKIA, DR LAYTON Mari Consulting Unavailable JESUS VALDEZ Consulting Unavailable VIKI DURAN Attending Unavailable VIKI DURAN Admitting Unavailable HOY ., DR PETERSEN Primary Care Unavailable ZIEBER, DR LAYTON Mari Consulting Unavailable HORajwinder ., DR PETERSEN Primary Care Unavailable VIKI DURAN Attending Unavailable VIKI DURAN Admitting Unavailable VIKI DURAN Consulting Unavailable MISC, DR MUNOZ Consulting Unavailable HOY ., DR PETERSEN Primary Care Unavailable MISC, DR MUNOZ Attending Unavailable [facility] [place], DR MUNOZ Admitting Unavailable DR LAYTON SMALL Consulting Unavailable Allergies Allergy Classification Reported Allergen(s) Allergy Type Date of Onset Reaction(s) Facility (1 source) Cephalexin Drug Allergy [facility] (1 source) Shellfish Drug allergy (disorder) [facility] Problems Active Problems Problem Classification [...] 06-25-2022 BASO # 0.0 103/ul Normal 0.0-0.1 [facility] Comment on above: Performed By: #### C BC #### [facility] [address] [address] [address] Yanira Avery Basophils/100 WBC (Bld) 0.4 % Normal 0.2-2.0 [facility] Comment on above: Performed By: #### C BC #### [facility] [address] [address] [address] Yanira Avery EO # 0.1 103/ul Normal 0.0-0.7 [facility] Comment on above: Performed By: #### C BC #### [facility] [address] [place] [address] Dr. Yanira Avery Eosinophils/100 WBC (Bld) 1.3 % Normal 0.9-7.0 [facility] Comment on above: Performed By: #### C BC #### [facility] [address] [place] [address] Dr. Yanira Avery Erythrocyte distribution width (RBC) [Ratio] 12.3 % Normal 11.0-15.0 [facility] Comment on above: Performed By: #### C BC #### [facility] [address] [place] [address] Dr. Yanira Avery Hematocrit (Bld) [Volume fraction] 47.0 % Normal 42.0-54.0 [facility] Comment on above: Performed By: #### C BC #### [facility] [address] [place] [address] Dr. Yanira Avery Hemoglobin (Bld) [Mass/Vol] 16.3 g/dL Normal 14.0-18.0 [facility] Comment on above: Performed By: #### C BC #### [facility] [address] [place] [address] Dr. Yanira Avery IG # 0.01 10e3/ul Normal 0.00-0.03 [facility] Comment on above: Performed By: #### C BC #### [facility] [address] [place] [address] Dr. Yanira Avery IG % 0.1 % Normal 0.0-0.5 [facility] Comment on above: Performed By: #### C BC #### [facility] [address] [place] [address] Dr. Yanira Avery LYMPH # 1.9 103/ul Normal 1.2-3.8 [facility] Comment on above: Performed By: #### C BC #### [facility] [address] [place] [address] Dr. Yanira Avery Lymphocytes/100 WBC (Bld) 26.6 % Normal 20.5-60.0 [facility] Comment on above: Performed By: #### C BC #### [facility] [address] [place] [address] Dr. Yanira Avery MANUAL DIFF REQ NO Normal [facility] Comment on above: Performed By: #### C BC #### [facility] [address] [place] [address] Dr. Yanira Avery MCH (RBC) [Entitic mass] 30.3 pg Normal 25.9-34.0 [facility] Comment on above: Performed By: #### C BC #### [facility] [address] [place] [address] Dr. Yanira Avery MCHC (RBC) [Mass/Vol] 34.7 g/dL Normal 29.9-35.2 [facility] Comment on above: Performed By: #### C BC #### [facility] [address] [place] [address] Dr. Yanira Avery MCV (RBC) [Entitic vol] 87.4 fL Normal 80.0-94.0 [facility] Comment on above: Performed By: #### C BC #### [facility] [address] [place] [address] Dr. Yanira Avery MONO # 0.5 103/ul Normal 0.3-0.[address] [facility] Comment on above: Performed By: #### C BC #### [facility] [address] [place] [address] Dr. Yanira Avery Monocytes/100 WBC (Bld) 7.5 % Normal 1.7-12.0 [facility] Comment on above: Performed By: #### C BC #### [facility] [address] [place] [address] Dr. Yanira Avery NEUT # 4.5 103/ul Normal 1.4-6.5 [facility] Comment on above: Performed By: #### C BC #### [facility] [address] [address] [address] Yanira Avery Neutrophils/100 WBC (Bld) 64.1 % Normal 43.0-75.0 [facility] Comment on above: Performed By: #### C BC #### [facility] [address] [place] [address] Dr. Yanira Avery Platelet mean volume (Bld) [Entitic vol] 9.9 fL Normal 9.5-13.5 [facility] Comment on above: Performed By: #### C BC #### [facility] [address] [place] [address] Dr. Yanira Avery PLT 264 103/ul Normal 150-[address] [facility] Comment on above: Performed By: #### C BC #### [facility] [address] [place] [address] Dr. Yanira Avery RBC 5.38 106/ul Normal 4.70-6.10 [facility] Comment on above: Performed By: #### C BC #### [facility] [address] [place] [address] Dr. Yanira Avery WBC 7.0 103/ul Normal 4.0-11.0 [facility] Comment on above: Performed By: #### C BC #### [facility] [address] [place] [address] Dr. Yanira Avery POINT OF CARE GLUCOSEon 05-0 Glucose [Mass/Vol] 98 mg/dL Normal 74-106 [facility] Comment on above: Performed By: #### A 1C #### [facility] [address] [place] [address] Dr. Yanira Avery Glucose [Mass/Vol] 97 mg/dL Normal 74-106 [facility] Comment on above: Performed By: #### P OCGLUC #### [facility] [address] [place] [address] Dr. Yanira Avery XR FOOT LT 2Von [...] by: LAUREN BAÑUELOS Date: 2022-06-25 18:09 Normal [facility] PROF CHEM 8 (BAS METB)on Anion gap [Moles/Vol] 11.6 mmol/L Normal [facility] Comment on above: Performed By: #### A 1C #### [facility] [address] [place] [address] Dr. Yanira Avery Calcium [Mass/Vol] 9.7 mg/dL Normal 8.5-10.1 [facility] Comment on above: Performed By: #### A 1C #### [facility] [address] [place] [address] Dr. Yanira Avery Chloride [Moles/Vol] 102 mmol/L Normal 98-107 [facility] Comment on above: Performed By: #### A 1C #### [facility] [address] [place] [address] Dr. Yanira Avery CO2 [Moles/Vol] 30.9 mmol/L Normal 21.0-32.0 [facility] Comment on above: Performed By: #### A 1C #### [facility] [address] [place] [address] Dr. Yanira Avery Creatinine [Mass/Vol] 1.04 mg/dL Normal 0.70-1.30 [facility] Comment on above: Performed By: #### A 1C #### [facility] [address] [place] [address] Dr. Yanira Avery EGFR-AF TURKISH >60 Normal >=60 [facility] Comment on above: Performed By: #### A 1C #### [facility] [address] [place] [address] Dr. Yanira Avery EGFR-NON AF TURKISH >60 Normal >=60 [facility] Comment on above: Performed By: #### A 1C #### [facility] [address] [place] [address] Dr. Yanira Avery Glucose [Mass/Vol] 103 mg/dL Normal 74-106 [facility] Comment on above: Performed By: #### A 1C #### [facility] [address] [place] [address] Dr. Yanira Avery Potassium [Moles/Vol] 4.5 mmol/L Normal 3.5-5.1 [facility] Comment on above: Performed By: #### A 1C #### [facility] [address] [place] [address] Dr. Yanira Avery Sodium [Moles/Vol] 140 mmol/L Normal 136-145 [facility] Comment on above: Performed By: #### A 1C #### [facility] [address] [place] [address] Dr. Yanira Avery Urea nitrogen [Mass/Vol] 14.0 mg/dL Normal 7.0-18.0 [facility] Comment on above: Performed By: #### A 1C #### [facility] [address] [place] [address] Dr. Yanira Avery Urea nitrogen/Creatinine [Mass ratio] 13.5 mg/mg Normal [facility] Comment on above: Performed By: #### A 1C #### [facility] [address] [place] [address] ANKLE LT WO [...] tissue swelling and edema. Electronically authenticated by: LAYTON SMALL Date: 2022-05-28 13:[address] [facility]on 12-24 SARS-CoV-2 (COVID-19) RNA EM+probe Ql (Unsp spec) Not detected Normal NOT DETECTED [facility] Comment on above: Result Comment: This test is not yet approved or cleared by the [place] FDA. When there are no FDA-approved or cleared tests available, and other criteria are met, FDA can make tests available under an emergency access mechanism called an Emergency Use Authorization (EUA). The EUA for this test is supported by the [employer] of Health and Human Service's (HHS's) declaration [...] SARS-CoV-2. Performed By: #### C VDTBH #### [facility] [address], [place] [address] Dr. Yanira Avery INFLUENZA A AND B AGon 01-14 INFLUANEGH SEE BELOW Normal [facility] Comment on above: Result Comment: Nega tive for Flu A protein angiten. Infection due to Flu A cannot be ruled out. Flu A angiten in the sample may be below the detection limit of the test. Performed By: #### I NFLUAB #### [facility] [address] [place] [address] Dr. Yanira Avery [facility] SEE BELOW Normal [facility] Comment on above: Result Comment: Nega tive for Flu B protein antigen. Infection due to Flu B cannot be ruled out. Flu B antigen in the sample may be below the detection limit of the test. Performed By: #### I NFLUAB #### [facility] [address] [place] [address] Dr. Yanira Avery INFLUENZA A AG Negative Normal NEGATIVE SEE COMMENT [facility] Comment on above: Performed By: #### I NFLUAB #### [facility] [address] [place] [address] Dr. Yanira Avery INFLUENZA B AG Negative Normal NEGATIVE SEE COMMENT [facility] Comment on above: Performed By: #### I NFLUAB #### [facility] [address] [place] [address] Dr. Yanira Avery INTERNAL CONTROLS Within Normal Limits Normal Wi thin Normal Limits [facility] Comment on above: Performed By: #### I NFLUAB #### [facility] [address] [place] [address] Dr. Yanira Avery INSULINon 01-12-2022 Insulin 18.3 uIU/mL Normal 2.6-24.[address] [facility] Comment on above: Performed By: #### I NSULIN #### [facility] [address] [place] [address] Dr. Yanira Avery CBC AUTO DIFFon 01-10-2022 BASO # 0.0 103/ul Normal 0.0-0.1 [facility] Comment on above: Performed By: #### C BC #### [facility] [address] [place] [address] Dr. Yanira Avery Basophils/100 WBC (Bld) 0.3 % Normal 0.2-2.[address] [facility] Comment on above: Performed By: #### C BC #### [facility] [address] [place] [address] Dr. Yanira Avery EO # 0.1 103/ul Normal 0.0-0.7 [facility] Comment on above: Performed By: #### C BC #### [facility] [address] [place] [address] Dr. Yanira Avery Eosinophils/100 WBC (Bld) 1.4 % Normal 0.9-7.0 [facility] Comment on above: Performed By: #### C BC #### [facility] [address] [place] [address] Dr. Yanira Avery Erythrocyte distribution width (RBC) [Ratio] 12.3 % Normal 11.0-15.0 [facility] Comment on above: Performed By: #### C BC #### [facility] [address] [place] [address] Dr. Yanira Avery Hematocrit (Bld) [Volume fraction] 44.4 % Normal 42.0-54.0 [facility] Comment on above: Performed By: #### C BC #### [facility] [address] [place] [address] Dr. Yanira Avery Hemoglobin (Bld) [Mass/Vol] 15.5 g/dL Normal 14.0-18.0 [facility] Comment on above: Performed By: #### C BC #### [facility] [address] [place] [address] Dr. Yanira Avery IG # 0.02 10e3/ul Normal 0.00-0.03 [facility] Comment on above: Performed By: #### C BC #### [facility] [address] [place] [address] Dr. Yanira Avery IG % 0.3 % Normal 0.0-0.[address] [facility] Comment on above: Performed By: #### C BC #### [facility] [address] [place] [address] Dr. Yanira Avery LYMPH # 2.0 103/ul Normal 1.2-3.[address] [facility] Comment on above: Performed By: #### C BC #### [facility] [address] [place] [address] Dr. Yanira Avery Lymphocytes/100 WBC (Bld) 31.3 % Normal 20.5-60.[address] [facility] Comment on above: Performed By: #### C BC #### [facility] [address] [place] [address] Dr. Yanira Avery MANUAL DIFF REQ NO Normal [facility] Comment on above: Performed By: #### C BC #### [facility] [address] [place] [address] Dr. Yanira Avery MCH (RBC) [Entitic mass] 30.5 pg Normal 25.9-34.0 [facility] Comment on above: Performed By: #### C BC #### [facility] [address] [place] [address] Dr. Yanira Avery MCHC (RBC) [Mass/Vol] 34.9 g/dL Normal 29.9-35.[address] [facility] Comment on above: Performed By: #### C BC #### [facility] [address] [place] [address] Dr. Yanira Avery MCV (RBC) [Entitic vol] 87.4 fL Normal 80.0-94.0 [facility] Comment on above: Performed By: #### C BC #### [facility] [address] [place] [address] Dr. Yanira Avery MONO # 0.5 103/ul Normal 0.3-0.8 [facility] Comment on above: Performed By: #### C BC #### [facility] [address] [place] [address] Dr. Yanira Avery Monocytes/100 WBC (Bld) 8.0 % Normal 1.7-12.0 [facility] Comment on above: Performed By: #### C BC #### [facility] [address] [place] [address] Dr. Yanira Avery NEUT # 3.7 103/ul Normal 1.4-6.[address] [facility] Comment on above: Performed By: #### C BC #### [facility] [address] [place] [address] Dr. Yanira Avery Neutrophils/100 WBC (Bld) 58.7 % Normal 43.0-75.0 [facility] Comment on above: Performed By: #### C BC #### [facility] [address] [address] [address] Yanira Avery Platelet mean volume (Bld) [Entitic vol] 10.0 fL Normal 9.5-13.5 [facility] Comment on above: Performed By: #### C BC #### [facility] [address] [place] [address] Dr. Yanira Avery PLT 237 103/ul Normal 150-[address] [facility] Comment on above: Performed By: #### C BC #### [facility] [address] [address] [address] Yanira Avery RBC 5.08 106/ul Normal 4.70-6.10 [facility] Comment on above: Performed By: #### C BC #### [facility] [address] [place] [address] Dr. Yanira Avery WBC 6.2 103/ul Normal 4.0-11.0 [facility] Comment on above: Performed By: #### C BC #### [facility] [address] [place] [address] Dr. Yanira Avery FREE T3on 01-10-2022 FREE T3 3.68 pg/mlL Normal 2.18-3.98 [facility] Comment on above: Performed By: #### A 1C #### [facility] [address] [place] [address] Dr. Yanira Avery GLYCOHEMOGLOBIN A1Con 2021 ADA RECOMMENDATION SEE BELOW Normal [facility] Comment on above: Result Comment: ADA RECOMMENDED LIMIT 4.0 - 6.0 ADA THERAPEUTIC TARGET < 7.0 ACTION SUGGESTED > 7.0 Performed By: #### A 1C #### [facility] [address] [place] [address] Dr. Yanira Avery Glucose [Mass/Vol] 117 mg/dL Normal [facility] Comment on above: Performed By: #### A 1C #### [facility] [address] [place] [address] Dr. Yanira Avery HbA1c (Bld) [Mass fraction] 5.7 % Normal 4.5-6.2 [facility] Comment on above: Performed By: #### A 1C #### [facility] [address] [address] [address] Yanira Avery LIPID PROFILEon 01-10-2022 CHOL-HDL RATIO NORM SEE BELOW Normal [facility] Comment on above: Result Comment: 3.3 - 4.4 LOW RISK 4.4 - 7.1 AVERAGE RISK 7.1 - 11.0 MODERATE RISK >11.0 HIGH RISK Performed By: #### A 1C #### [facility] [address] [address] [address] Yanira Avery Cholesterol [Mass/Vol] 187 mg/dL Normal <=200 [facility] Comment on above: Performed By: #### A 1C #### [facility] [address] [address] [address] Yanira Avery Cholesterol in HDL [Mass/Vol] 43 mg/dL Normal 40-60 [facility] Comment on above: Performed By: #### A 1C #### [facility] [address] [address] [address] Yanira Avery Cholesterol in LDL [Mass/Vol] 115.0 mg/dL Normal [facility] Comment on above: Performed By: #### A 1C #### [facility] [address] [address] [address] Yanira Avery Cholesterol.total/Ch olesterol in HDL [Mass ratio] 4.3 {ratio} Normal [facility] Comment on above: Performed By: #### A 1C #### [facility] [address] [address] [address] Yanira Avery HDL NORMAL > or = 60 mg/dl - LO W CARDIOVASCULAR RISK <40 mg/dl - HIGH CARDIOVASCULAR RISK Normal [facility] Comment on above: Performed By: #### A 1C #### [facility] [address] [address] [address] Yanira Avery LDL CALC NORMAL SEE BELOW Normal [facility] Comment on above: Result Comment: <100 mg/dl OPTIMAL 100 - 129 mg/dl NEAR OR ABOVE OPTIMAL 130 - 159 mg/dl BORDERLINE HIGH 160 - 189 mg/dl HIGH >190 mg/dl VERY HIGH Performed By: #### A 1C #### [facility] [address] [place] [address] Dr. Yanira Avery Triglyceride [Mass/Vol] 145 mg/dL Normal <=150 [facility] Comment on above: Performed By: #### A 1C #### [facility] [address] [place] [address] Dr. Yanira Avery VLDL CALC 29.0 mg/dL Normal [facility] Comment on above: Performed By: #### A 1C #### [facility] [address] [place] [address] Dr. Yanira Avery PROF 14(COMP METB)on 022 Albumin [Mass/Vol] 3.9 g/dL Normal 3.4-5.0 [facility] Comment on above: Performed By: #### A 1C #### [facility] [address] [place] [address] Dr. Yanira Avery Albumin/Globulin [Mass ratio] 1.1 {ratio} Normal [facility] Comment on above: Performed By: #### A 1C #### [facility] [address] [place] [address] Dr. Yanira Avery ALP [Catalytic activity/Vol] 89 U/L Normal 46-116 [facility] Comment on above: Performed By: #### A 1C #### [facility] [address] [place] [address] Dr. Yanira Avery ALT [Catalytic activity/Vol] 28 U/L Normal 16-63 [facility] Comment on above: Performed By: #### A 1C #### [facility] [address] [place] [address] Dr. Yanira Avery Anion gap [Moles/Vol] 9.5 mmol/L Normal [facility] Comment on above: Performed By: #### A 1C #### [facility] [address] [place] [address] Dr. Yanira Avery AST [Catalytic activity/Vol] 13 U/L Critically low 15-37 [facility] Comment on above: Performed By: #### A 1C #### [facility] [address] [place] [address] Dr. Yanira Avery Bilirubin [Mass/Vol] 0.6 mg/dL Normal 0.2-1.0 [facility] Comment on above: Performed By: #### A 1C #### [facility] [address] [place] [address] Dr. Yanira Avery Calcium [Mass/Vol] 9.2 mg/dL Normal 8.5-10.1 [facility] Comment on above: Performed By: #### A 1C #### [facility] [address] [place] [address] Dr. Yanira Avery Chloride [Moles/Vol] 103 mmol/L Normal 98-107 [facility] Comment on above: Performed By: #### A 1C #### [facility] [address] [place] [address] Dr. Yanira Avery CO2 [Moles/Vol] 30.7 mmol/L Normal 21.0-32.0 [facility] Comment on above: Performed By: #### A 1C #### [facility] [address] [place] [address] Dr. Yanira Avery Creatinine [Mass/Vol] 0.88 mg/dL Normal 0.70-1.30 [facility] Comment on above: Performed By: #### A 1C #### [facility] [address] [place] [address] Dr. Yanira Avery EGFR-AF TURKISH >60 Normal >=60 [facility] Comment on above: Performed By: #### A 1C #### [facility] [address] [place] [address] Dr. Yanira Avery EGFR-NON AF TURKISH >60 Normal >=60 [facility] Comment on above: Performed By: #### A 1C #### [facility] [address] [place] [address] Dr. Yanira Avery Globulin (S) [Mass/Vol] 3.4 g/dL Normal [facility] Comment on above: Performed By: #### A 1C #### [facility] [address] [place] [address] Dr. Yanira Avery Glucose [Mass/Vol] 109 mg/dL Critically high 74-106 [facility] Comment on above: Performed By: #### A 1C #### [facility] [address] [address] [address] Yanira Avery Potassium [Moles/Vol] 4.2 mmol/L Normal 3.5-5.1 [facility] Comment on above: Performed By: #### A 1C #### [facility] [address] [address] [address] Yanira Avery Protein [Mass/Vol] 7.3 g/dL Normal 6.4-8.2 [facility] Comment on above: Performed By: #### A 1C #### [facility] [address] [address] [address] Yanira Avery Sodium [Moles/Vol] 139 mmol/L Normal 136-145 [facility] Comment on above: Performed By: #### A 1C #### [facility] [address] [place] [address] Dr. Yanira Avery Urea nitrogen [Mass/Vol] 12.0 mg/dL Normal 7.0-18.0 [facility] Comment on above: Performed By: #### A 1C #### [facility] [address] [place] [address] Dr. Yanira Avery Urea nitrogen/Creatinine [Mass ratio] 13.6 mg/mg Normal [facility] Comment on above: Performed By: #### A 1C #### [facility] [address] [place] [address] Dr. Yanira Avery T4on 01-10-2022 T4 [Mass/Vol] 9.20 ug/dL Normal 4.50-12.10 [facility] Comment on above: Performed By: #### A 1C #### [facility] [address] [place] [address] Dr. Yanira Avery TSHon 01-10-2022 TSH 1.194 uIU/mL Normal 0.358-3.740 [facility] Comment on above: Performed By: #### A 1C #### [facility] [address] [place] [address] Dr. Yanira Avery HEMOGLOBINon 09-03-2021 Hemoglobin (Bld) [Mass/Vol] 15.2 g/dL Normal 14.0-18.[address] [facility] Comment on above: Performed By: #### H GB #### [facility] [address] CHEST WO CONon [...] LAYTON SMALL Date: 2021-08-11 07:[address] [facility] Encounters Encounter Date Encounter Type Care Provider Facility Start: 06-30-2022 Encounter for prepro cedural cardiovascular examination SAYDA NORWOOD [facility] Start: 06-30-2022 Encounter for prepro cedural laboratory examination SAYDA NORWOOD [facility] Start: 06-25-2022 End: 06-25-[address] LAUREN [...] abnormal findings DR NICOLA VALENCIA . [facility] Start: 01-10-2022 End: [address] [...] Comment on above: Performed By: #### P [facility] #### [facility] [address] [place] [address] Dr. Yanira Avery Plan of Treatment Date Care Activity Detail Author Start: 07-16-2022 ambulatory Ambulatory Facility:H 1 Payers Date Payer Category Payer Unknown [id number] 2.16.84 [id number] 1978 Unknown [id number] 2.16.84 [id number] 1978 Unknown [id number] 2.16.84 0.1.528320.3.579.2.593 1978 Unknown [id number] 2.16.84 0.1.620177.3.579.2.593 1978 Unknown [id number] 2.16.84 0.1.550747.3.579.2.593 1978 Unknown [id number] 2.16.84 0.1.758874.3.579.2.593 1978 Unknown [id number] 2.16.84 0.1.773523.3.579.2.593 1978 Unknown [id number] 2.16.84 0.1.339145.3.579.2.593 1978 Unknown [id number] 2.16.84 0.1.010646.3.579.2.593 1978 Unknown [id number] 2.16.84 0.1.155186.3.579.2.593 1959 Private Health Insurance [id number] 1959 Unknown [id number] Clinical Note 06-25-2022 Note Date & Type [...] authenticated by: LAUREN BAÑUELOS Date: 2022-06-25 18:11 [facility] Clinical Note 06-18-2022 Note Date & Type [...] authenticated by: LAYTON SMALL Date: 2022-06-18 14:03 [facility] Clinical Note 05-28-2022 Note Date & Type [...] authenticated by: LAUREN BAÑUELOS Date: 2022-05-28 11:04 [facility] Clinical Note 05-28-2022 Note Date & Type [...] authenticated by: LAUREN BAÑUELOS Date: 2022-05-28 11:04 [facility] Clinical Note 05-28-2022 Note Date & Type [...] authenticated by: LAUREN BAÑUELOS Date: 2022-05-28 11:04 [facility] Summary Purpose Family History No Family History Records Found Advance Directives No Advanced Directives Records Found Additional Source Comments (unrecognized sect ion and content) No Status Records Found INFORMATION SOURCE (unrecogn ized section and content) DATE CREATED AUTHOR 07/06/2022 [facility] FOR RECORDS PERTAINING TO PATIENTS WHO ARE [...] BE BASED ON THE PRIMARY CLINICAL RECORDS. [facility]. provides no warranty or guarantee of the accuracy or completeness of information in this document.
[2023-09-20 16:08] LABS: Internal Control Within Normal Limits; SARS-CoV-2 Ag NEGATIVE (NEGATIVE)
== END 2023-09-20 15:24 | disposition home or self-care (01) ==
LOC: LAB 15:23
PROVIDERS: PCP Family Medicine; Visit Provider Family Medicine
DX: J20.8 Acute bronchitis due to other specified organisms (principal)
CPT/HCPCS: 87811

== ENCOUNTER 2024-12-23 08:25 | Outpatient (OUT) | payer OTHER, SELFPAY ==
--- OUTSIDE RECORDS SUMMARY | 2023-11-26 11:30 | XMS_ITS ---
Author Organization [facility] [place] Address [address] [place] [address] Care Team Providers Care Sander And Polisher Name Role Phone Yonas Tomas Primary Care Provider [phone] REASON FOR VISIT Stress/ Discuss Blood pressure Encounters Encounter Location Date Provider Diagnosis [facility] [address] [facility] [place] [address] 11/26/2023 Yonas Tomas Plan Of Treatment No Information Progress Notes * BABINJacek JACOB PDOB: [birth year] (44 yo M)Acc No.[id number]:11/26/2023 UNLOCKED PROGRESS NOTE Progress Note Patient: Jacek CADENA :?Rony VALDES), MDDOB:1980???Age: 43 Y???Sex:MaleDate:4Phone:[phone]:[id number] [id number] Subjective: * Chief Complaints: * 1 . Stress/ Discuss Blood pressure. * Medical History: Objective: * Vitals: Assessment: Plan: * Treatment: * * Electronic signature of Yonas Tomas MD, [id number] on 12/23/2024 at 08:27 AM EDT Sign off status: PendingVisit Status:?CANC (Cancelled) * Provider: Estrada Tomas MD (TTC) Date: 1 Generated for Printing/Faxing/eTransmitting on:?12/23/2024 08:27 AM EDT
--- OUTSIDE RECORDS SUMMARY | 2024-12-23 08:27 | XMS_ITS | CCD ---
Author Organization [facility] Care Team Providers [employer] Education Director Name Role Phone ANNIE Robles, DR PETERSEN [...] DR PETERSEN Consulting Unavailable HOY ., DR PEETRSEN Primary Care Unavailable HOY ., DR PETERSEN [...] Care Unavailable MISC, DR MUNOZ Attending Unavailable [facility], DR MUNOZ Admitting Unavailable STACI, DR LAYTON Mari Consulting Unavailable Allergies Allergy ClassificationReported Allergen(s)Allergy TypeDate of OnsetReaction(s) Facility (1 source)CephalexinDrug AllergyThe [facility] (1 source)ShellfishDrug allergy (disorder)The [facility] Problems Active Problems Problem ClassificationProblemDateDocumented DateEpisodic/ChronicCrushing injury or internal injury (1 source)Crushing injury of left foot, initial encounter; Translations: [CRUSHING INJURY LEFT FOOT INITIAL]Onset: 77-37-0908WbxwcpcaNkibgpkch hypertension (1 source)Essential (primary) hypertension; Translations: [ESSENTIAL PRIMARY HYPERTENSION]Onset: 89-90-3443LqnsowhFsmqjlum of lower limb (13 sources)Displaced fracture of fifth metatarsal bone, left foot, initial encounter for closed fracture; Translations: [Fracture of unspecified metatarsal bone(s), left foot, initial encounter for closed fracture]Onset: 05-28-2022 EpisodicOther lower respiratory disease (4 sources)Interstitial pulmonary disease, unspecified; Translations: [INTERSTITIAL PULMONARY DISEASE UNS]Onset: 20-45-0183AvzltbsVqxcqsuzjvxz (3 sources)CONTACT W/AND (SUSP) EXPOS COVID-19; Translations: [CONTACT W/AND (SUSP) EXPOS COVID-19]Onset: 70-93-7301Axldacposvcr (1 source)POST COVID-19 CONDITION UNSPECIFIED; Translations: [POST COVID-19 CONDITION UNSPECIFIED]Onset: 09-04-2021 Past or Other Problems Problem ClassificationProblemDateDocumented DateEpisodic/ChronicOther lower respiratory disease (5 sources)Dyspnea, unspecified; Translations: [DYSPNEA UNSPECIFIED]Onset: 25-66-0793UrodihevNetkh screening for suspected conditions (not mental disorders or infectious disease) (1 source)Encounter for screening for malignant neoplasm of prostate; Translations: [ENC SCREEN MALIG NEOPLASM PROSTATE]Onset: 03-00-6323Ipxumquk Unclassified (1 source)CONTACT W/AND (SUSP) EXPOS COVID-19; Translations: [CONTACT W/AND (SUSP) EXPOS COVID-19]Onset: 11-23-2022 Results Test NameValueInterpretationReference RangeFacilityCBC AUTO DIFFon 06-25-2022 BASO #0.0 103/ulNormal0.0-0.1The [facility]Comment on above:Performed By: #### CBC #### [facility] [address] [address] [address] Yanira AveryBasophils/100 WBC (Bld)0.4 %Normal0.2-2.0The [facility] Comment on above:Performed By: #### CBC #### [facility] [address] [address] [address] Yanira Pollock #0.1 103/ulNormal0.0-0.7The [facility]burgComment on above: Performed By: #### CBC #### [facility] [address] [place] [address] Dr. Yanira Brodyosinophils/100 WBC (Bld)1.3 %Normal0.9-7.0The [facility] Comment on above:Performed By: #### CBC #### [facility] [address] [address] [address] Yanira Brodyrythrocyte distribution width (RBC) [Ratio]12.3 %Jzbsne06.0-15.0 The [facility]burgComment on above:Performed By: #### CBC #### [facility] [address] [place] [address] Dr. Yanira AveryHematocrit (Bld) [Volume fraction]47.0 %Ovipcd26.0-54.0The [facility]burgComment on above:Performed By: #### CBC #### [facility] [address] [place] [address] Dr. Yanira AveryHemoglobin (Bld) [Mass/Vol]16.3 g/dTDlvvad65.0-18.0The [facility]burgComment on above:Performed By: #### CBC #### [facility] [address] [place] [address] Dr. Yanira Cruz #0.01 10e3/ulNormal0.00-0.03The [facility] on above:Performed By: #### CBC #### [facility] [address] [address] [address] Yanira Cruz %0.1 %Normal0.0-0.5The [facility] on above: Performed By: #### CBC #### [facility] [address] [address] [address] Yanira Syed #1.9 103/ulNormal1.2-3.8The [facility]burgComment on above:Performed By: #### CBC #### [facility] [address] [place] [address] Dr. Yanira Leehocytes/100 WBC (Bld)26.6 %Mxfuiq99.5-60.0The [facility] on above:Performed By: #### CBC #### [facility] [address] [place] [address] Dr. Yanira Louis DIFF REQNONormalThe [facility]burgComment on above: Performed By: #### CBC #### [facility] [address] [place] [address] Dr. Yanira Murdock (RBC) [Entitic mass]30.3 csCrorii51.9-34.0The [facility] on above:Performed By: #### CBC #### [facility] [address] [place] [address] Dr. Yanira Murdock (RBC) [Mass/Vol]34.7 g/rSSajbwj04.9-35.2The [facility] Hospitalment on above:Performed By: #### CBC #### [facility] [address] [place] [address] Dr. Yanira Murdock (RBC) [Entitic vol]87.4 iZQvsles83.0-94.0The [facility] on above:Performed By: #### CBC #### [facility] [address] [place] [address] Dr. Yanira Cantu #0.5 103/ulNormal0.3-0.8The [facility] HospitalComment on above:Performed By: #### CBC #### [facility] [address] [address] [address] Yanira Santosocytes/100 WBC (Bld)7.5 %Normal1.7-12.0The [facility] on above:Performed By: #### CBC #### [facility] [address] [place] [address] Dr. Yanira ChenUT #4.5 103/ulNormal1.4-6.5The [facility]burgComment on above:Performed By: #### CBC #### [facility] [address] [place] [address] Dr. Yanira Chenutrophils/100 WBC (Bld)64.1 %Bmvmdq07.0-75.0The [facility]burgComment on above:Performed By: #### CBC #### [facility] [address] [place] [address] Dr. Yanira AveryPlatelet mean volume (Bld) [Entitic vol]9.9 fLNormal9.5-13.5The [facility]burgComment on above:Performed By: #### CBC #### [facility] [address] [place] [address] Dr. Yanira AveryPLT264 103/waOqrzwe236-522Dtk [facility]burgComment on above: Performed By: #### CBC #### [facility] [address] [place] [address] Dr. Yanira AveryRBC5.38 106/ulNormal4.70-6.10The [facility]burgComment on above:Performed By: #### CBC #### [facility] [address] [place] [address] Dr. Yanira AveryWBC7.0 103/ulNormal4.0-11.0The [facility]burgComment on above: Performed By: #### CBC #### [facility] [address] [place] [address] Dr. Yanira AveryCRISP [facility] GLUCOSEon 06-50-8406Itnjcen [Mass/Vol]98 mg/dL Omoxgl50-606Glv [facility] HospitalComment on above:Performed By: #### A1C #### [facility] [address] [address] [address] Yanira AveryGlucose [Mass/Vol]97 mg/jVCiixcp99-749DntMercer County Community Hospital Comment on above:Performed By: #### POCGLUC #### [facility] [address] [place] [address] Dr. Yanira AveryXR FOOT LT 2Von [id number] FOOT LT 2VEXAM: XR FOOT LT 2V HISTORY: Pain COMPARISON: 06/18/2022 TECHNIQUE: 1 minute and 7 seconds of fluoroscopy. 11 images 67.7 seconds of fluoroscopy FINDINGS: Interval reduction and pinning of the fourth metatarsal phalangeal joint dislocation. Stable fractures head of the third and fourth metatarsals IMPRESSION: Reduction and pinning of the fifth metatarsal phalangeal joint dislocation Electronically authenticated by: LAUREN BAÑUELOS Date: 2022-06-25 18:09[facility] HospitalPROF CHEM 8 (BAS METB)on 23-95-2030Rdbzq gap [Moles/Vol]11.6 mmol/LNormalMercer County Community HospitalComment on above:Performed By: #### A1C #### [facility] [address] [place] [address] Dr. Yanira AveryCalcium [Mass/Vol]9.7 mg/dLNormal8.5-10.1[facility] Comment on above:Performed By: #### A1C #### [facility] [address] [place] [address] Dr. Yanira AveryChloride [Moles/Vol]102 mmol/ZDsbjnx37-555EpvMercer County Community Hospital Comment on above:Performed By: #### A1C #### [facility] [address] [place] [address] Dr. Yanira AveryCO2 [Moles/Vol]30.9 mmol/OHjhkwk77.0-32.0[facility] Comment on above:Performed By: #### A1C #### [facility] [address] [place] [address] Dr. Yanira AveryCreatinine [Mass/Vol]1.04 mg/dLNormal0.70-1.30The [facility]burgComment on above:Performed By: #### A1C #### [facility] [address] [address] [address] Yanira BrodyGFR-AF MACEDONIAN>60Normal>=60The [facility]burgComment on above:Performed By: #### A1C #### [facility] [address] [address] [address] Yanira BrodyGFR-NON AF MACEDONIAN>60Normal>=60The [facility]burgComment on above:Performed By: #### A1C #### [facility] [address] [address] [address] Yanira AveryGlucose [Mass/Vol]103 mg/wDNcfqag00-268Moy [facility] Comment on above:Performed By: #### A1C #### [facility] [address] [address] [address] Yanira AveryPotassium [Moles/Vol]4.5 mmol/LNormal3.5-5.1[facility] Comment on above:Performed By: #### A1C #### [facility] [address] [address] [address] Yanira Carydium [Moles/Vol]140 mmol/WMxcjyk737-839Udv [facility] Comment on above:Performed By: #### A1C #### [facility] [address] [address] [address] Yanira AveryUrea nitrogen [Mass/Vol]14.0 mg/dLNormal7.0-18.0The [facility]burgComment on above:Performed By: #### A1C #### [facility] [address] [address] [address] Yanira AveryUrea nitrogen/Creatinine [Mass ratio]13.5 mg/mgNormalThe [facility]burgComment on above:Performed By: #### A1C #### [facility] [address] [address] [address] Yanira AveryCT ANKLE LT WO CONon 57-08-2384ZQ ANKLE LT WO CONEXAMINATION: CT FOOT LT WO CON, CT ANKLE [...] Electronically authenticated by: LAYTON SMALL Date: 2022-05-28 13:09[facility] HospitalCovid-19 PCR (CVDTBH)on 08-47-2683UNEW-CoV-2 (COVID-19) RNA EM+probe Ql (Unsp spec)Not detectedNormalNOT DETECTEDThe [facility] Comment on above:Result Comment: This test is not yet approved or cleared by the [place] FDA. When there are no FDA-approved or cleared tests available, and other criteria are met, FDA can make tests available under an emergency access mechanism called an Emergency Use Authorization (EUA). The EUA for this test is supported by the [employer] Operator of Health and Human Service's (HHS's) declaration that circumstances exist to justify the emergency use of in vitro diagnostics for the detection and/or diagnosis of the virus that causes COVID- 19. This EUA will remain in effect (meaning [...] of clinical signs and symptoms consistent with SARS-CoV-2.Performed By: #### CVDTBH #### [facility] [address] [place] [address] Dr. Yanira Yadav A AND B AGon [id number]tman Orrville Hospital on above:Result Comment: Negative for Flu A protein angiten. Infection due to Flu A cannot be ruled out. FluA angiten in the sample may be below the detection limit of the test.Performed By: #### INFLUAB #### [facility] [address] [place] [address] Dr. Yanira FrancoisUBNEGHSAultman Orrville Hospital on above: Result Comment: Negative for Flu B protein antigen. Infection due to Flu B cannot be ruled out. FluB antigen in the sample may be below the detection limit of the test.Performed By: #### INFLUAB #### [address] [address] [address] Yanira Terry AGNegativeNormalNEGATIVE SEE COMMENTThe [facility] on above:Performed By: #### INFLUAB #### [address] [address] [address] Yanira Garcia AGNegativeNormalNEGATIVE SEE COMMENTThe [facility] on above:Performed By: #### INFLUAB #### [facility] [address] [place] [address] Dr. Yanira AveryINTERNAL CONTROLSWithin Normal LimitsNormalWithin Normal Limits The [facility] on above:Performed By: #### INFLUAB #### [facility] [address] [place] [address] Dr. Yanira AveryINSULINon 64-95-9857Ssevxdg36.3 uIU/mLNormal2.6-24.9The [facility] on above:Performed By: #### INSULIN #### [facility] [address] [place] [address] Dr. Yanira AveryCBNanette AUTO DIFFon 03-13-6402DIJP #0.0 103/ulNormal0.0-0.1The [facility] HospitalComment on above:Performed By: #### CBC #### [facility] [address] [address] [address] Yanira AveryBasophils/100 WBC (Bld)0.3 %Normal0.2-2.0The [facility] Comment on above:Performed By: #### CBC #### [facility] [address] [place] [address] Dr. Yanira Pollock #0.1 103/ulNormal0.0-0.7The [facility]burgComment on above: Performed By: #### CBC #### [facility] [address] [place] [address] Dr. Yanira Brodyosinophils/100 WBC (Bld)1.4 %Normal0.9-7.0The [facility] Comment on above:Performed By: #### CBC #### [facility] [address] [place] [address] Dr. Yanira Brodyrythrocyte distribution width (RBC) [Ratio]12.3 %Ehkptp84.0-15.0 The [facility]burgComment on above:Performed By: #### CBC #### [facility] [address] [place] [address] Dr. Yanira AveryHematocrit (Bld) [Volume fraction]44.4 %Zntetx69.0-54.0The [facility]burgComment on above:Performed By: #### CBC #### [facility] [address] [place] [address] Dr. Yanira AveryHemoglobin (Bld) [Mass/Vol]15.5 g/wMAhsghx61.0-18.0The [facility]burgComment on above:Performed By: #### CBC #### [facility] [address] [place] [address] Dr. Yanira Cruz #0.02 10e3/ulNormal0.00-0.03The [facility]burgComment on above:Performed By: #### CBC #### [facility] [address] [place] [address] Dr. Yanira Cruz %0.3 %Normal0.0-0.5The [facility]burgComment on above: Performed By: #### CBC #### [facility] [address] [address] [address] Yanira Syed #2.0 103/ulNormal1.2-3.8The [facility]burgComasc[facility] on above:Performed By: #### CBC #### [facility] [address] [place] [address] Dr. Yanira Leehocytes/100 WBC (Bld)31.3 %Erczsx18.5-60.0The [facility]burgComasc[facility] on above:Performed By: #### CBC #### [facility] [address] [place] [address] Dr. Yanira Louis DIFF REQNONormalThe [facility]burgComment on above: Performed By: #### CBC #### [facility] [address] [place] [address] Dr. Yanira Coutrney (RBC) [Entitic mass]30.5 haJuvhaf40.9-34.0The [facility]burgComment on above:Performed By: #### CBC #### [facility] [address] [place] [address] Dr. Yanira Murdock (RBC) [Mass/Vol]34.9 g/tLNbuwrz11.9-35.2The [facility] on above:Performed By: #### CBC #### [facility] [address] [place] [address] Dr. Yanira Ramirez (RBC) [Entitic vol]87.4 mQQghxus46.0-94.0The [facility]Com[facility] hospital on above:Performed By: #### CBC #### [facility] [address] [place] [address] Dr. Yanira Cantu #0.5 103/ulNormal0.3-0.8The [facility] on above:Performed By: #### CBC #### [facility] [address] [place] [address] Dr. Yanira Santosocytes/100 WBC (Bld)8.0 %Normal1.7-12.0The [facility] Comment on above:Performed By: #### CBC #### [facility] [address] [place] [address] Dr. Yanira Gaona #3.7 103/ulNormal1.4-6.5The [facility]burgComment on above:Performed By: #### CBC #### [facility] [address] [place] [address] Dr. Yanira Chenutrophils/100 WBC (Bld)58.7 %Nhmnrs88.0-75.0The [facility]burgComment on above:Performed By: #### CBC #### [facility] [address] [place] [address] Dr. Yanira AveryPlatelet mean volume (Bld) [Entitic vol]10.0 fLNormal9.5-13.5The [facility]burgComment on above:Performed By: #### CBC #### [facility] [address] [place] [address] Dr. Yanira AveryPLT237 103/xbPqsanj016-023Fdv [facility]burgComment on above: Performed By: #### CBC #### [facility] [address] [place] [address] Dr. Yanira AveryRBC5.08 106/ulNormal4.70-6.10The [facility]burgComment on above:Performed By: #### CBC #### [facility] [address] [place] [address] Dr. Yanira AveryWBC6.2 103/ulNormal4.0-11.0The [facility]burgComment on above: Performed By: #### CBC #### [facility] [address] [place] [address] Dr. Yanira AveryFREE T3on 13-95-0628NCBH T33.68 pg/mlLNormal2.18-3.98The [facility]burgComment on above:Performed By: #### A1C #### [facility] [address] [place] [address] Dr. Yanira AveryGLYCOHEMOGLOBIN A1Con 78-80-3403RGM RECOMMENDATIONSEE BELOWAshtabula County Medical CenterComment on above:Result Comment: ADA RECOMMENDED LIMIT 4.0 - 6.0 ADA THERAPEUTIC TARGET < 7.0 ACTION SUGGESTED > 7.0Performed By: #### A1C #### [facility] [address] [address] [address] Yanira AveryGlucose [Mass/Vol]117 mg/dLNoCleveland Clinic Mentor HospitalComment on above:Performed By: #### A1C #### [facility] [address] [place] [address] Dr. Yanira AveryHbA1c (Bld) [Mass fraction]5.7 %Normal4.5-6.2[facility] HospitalComment on above:Performed By: #### A1C #### [facility] [address] [place] [address] Dr. Yanira AveryLIPID PROFILEon 88-70-0504NKKM-HDL RATIO NORMSEE [facility] SystemComasc[facility] on above:Result Comment: 3.3 - 4.4 LOW RISK 4.4 - 7.1 AVERAGE RISK 7.1 - 11.0 MODERATE RISK >11.0 HIGH RISKPerformed By: #### A1C #### [facility] [address] [place] [address] Dr. Yanira Srivastavaesterol [Mass/Vol]187 mg/dLNormal<=200The [facility] Comment on above:Performed By: #### A1C #### [facility] [address] [place] [address] Dr. Yanira Srivastavaesterol in HDL [Mass/Vol]43 mg/tXXqaqga45-59Rgi [facility]burgComment on above:Performed By: #### A1C #### [facility] [address] [place] [address] Dr. Yanira Srivastavaesterol in LDL [Mass/Vol]115.0 mg/dLHolmes County Joel Pomerene Memorial HospitalComascension genesys hospital on above:Performed By: #### A1C #### [facility] [address] [place] [address] Dr. Yilan ChangCholesterol.total/Cholesterol in HDL [Mass ratio]4.3 {ratio} NormalThe [facility]burgComment on above:Performed By: #### A1C #### [facility] [address] [address] [address] Yanira Kirk NORMAL> or = 60 mg/dl - LOW CARDIOVASCULAR RISK <40 mg/dl - HIGH CARDIOVASCULAR RISKHolmes County Joel Pomerene Memorial HospitalComment on above:Performed By: #### A1C #### [facility] [address] [address] [address] Yanira AveryLDL CALC NORMALSEE BELOWNoCleveland Clinic Mentor HospitalComment on above:Result Comment: <100 mg/dl OPTIMAL 100 - 129 mg/dl NEAR OR ABOVE OPTIMAL 130 - 159 mg/dl BORDERLINE HIGH 160 - 189 mg/dl HIGH >190 mg/dl VERY HIGH Performed By: #### A1C #### [facility] [address] [place] [address] Dr. Yanira AveryTriglyceride [Mass/Vol]145 mg/dLNormal<=150The [facility] Comment on above:Performed By: #### A1C #### [facility] [address] [address] [address] Yanira DentonLDL CALC29.0 mg/dLNoCleveland Clinic Mentor HospitalComment on above: Performed By: #### A1C #### [facility] [address] [place] [address] Dr. Yanira AveryPROF 14(COMP METB)on 40-29-2732Busasmp [Mass/Vol]3.9 g/dLNormal 3.4-5.0The [facility]burgComment on above:Performed By: #### A1C #### [facility] [address] [address] [address] Yanira AveryAlbumin/Globulin [Mass ratio]1.1 {ratio}NormalThe [facility]burgComment on above:Performed By: #### A1C #### [facility] [address] [address] [address] Yanira TabaresP [Catalytic activity/Vol]89 U/IHxbcew14-282Drr [facility]burgComment on above:Performed By: #### A1C #### [facility] [address] [address] [address] Yanira TabaresT [Catalytic activity/Vol]28 U/RPkgnwj85-83Ime [facility]burgComment on above:Performed By: #### A1C #### [facility] [address] [address] [address] Yanira AveryAnion gap [Moles/Vol]9.5 mmol/LNormalThe [facility]burgComment on above:Performed By: #### A1C #### [facility] [address] [address] [address] Yanira AveryAST [Catalytic activity/Vol]13 U/LCritically rdj48-07Kpi [facility]burgComment on above:Performed By: #### A1C #### [facility] [address] [address] [address] Yanira AveryBilirubin [Mass/Vol]0.6 mg/dLNormal0.2-1.0The [facility] Comment on above:Performed By: #### A1C #### [facility] [address] [address] [address] Yanira AveryCalcium [Mass/Vol]9.2 mg/dLNormal8.5-10.1The [facility] Comment on above:Performed By: #### A1C #### [facility] [address] [address] [address] Yanira AveryChloride [Moles/Vol]103 mmol/DWizkpy45-870Qeg [facility] Comment on above:Performed By: #### A1C #### [facility] [address] [address] [address] Yanira AveryCO2 [Moles/Vol]30.7 mmol/KVtrcad95.0-32.0The [facility] Comment on above:Performed By: #### A1C #### [facility] [address] [address] [address] Yanira AveryCreatinine [Mass/Vol]0.88 mg/dLNormal0.70-1.30The [facility]burgComment on above:Performed By: #### A1C #### [facility] [address] [address] [address] Yanira BrodyGFR-AF MACEDONIAN>60Normal>=60The [facility]burgComment on above:Performed By: #### A1C #### [facility] [address] [address] [address] Yanira BrodyGFR-NON AF MACEDONIAN>60Normal>=60The [facility]burgComment on above:Performed By: #### A1C #### [facility] [address] [address] [address] Yanira AveryGlobulin (S) [Mass/Vol]3.4 g/dLNormalThe [facility]amisburgComment on above:Performed By: #### A1C #### [facility] [address] [place] [address] Dr. Yanira AveryGlucose [Mass/Vol]109 mg/dLCritically wjqa33-123Asn [facility]Comment on above:Performed By: #### A1C #### [facility] [address] [address] [address] Yanira vAeryPotassium [Moles/Vol]4.2 mmol/LNormal3.5-5.1The [facility] Comment on above:Performed By: #### A1C #### [facility] [address] [place] [address] Dr. Yanira AveryProtein [Mass/Vol]7.3 g/dLNormal6.4-8.2The [facility] Comment on above:Performed By: #### A1C #### [facility] [address] [address] [address] Yanira AverySodium [Moles/Vol]139 mmol/YBqbfau112-907Zla [facility] Comment on above:Performed By: #### A1C #### [facility] [address] [address] [address] Yanira AveryUrea nitrogen [Mass/Vol]12.0 mg/dLNormal7.0-18.0The [facility]burgComment on above:Performed By: #### A1C #### [facility] [address] [place] [address] Dr. Yanira AveryUrea nitrogen/Creatinine [Mass ratio]13.6 mg/mgNormalThe [facility]burgComment on above:Performed By: #### A1C #### [facility] [address] [place] [address] Dr. Yanira AveryT4on 57-21-9826G3 [Mass/Vol]9.20 ug/dLNormal4.50-12.10The [facility]Comment on above:Performed By: #### A1C #### [facility] [address] [place] [address] Dr. Yanira AveryTSHon 58-23-1175TES5.194 uIU/mLNormal0.358-3.740The [facility]burgComment on above:Performed By: #### A1C #### [facility] [address] [place] [address] Dr. Yanira AveryHEMOGLOBINon 21-21-0742Qzftaqhcsy (Bld) [Mass/Vol]15.2 g/dLNormal 14.0-18.0The [facility]burgComment on above:Performed By: #### HGB #### [facility] [address] [place] [address] Dr. Yanira AveryCT CHEST WO CONon 58-59-8384EO CHEST WO CONEXAMINATION: CT CHEST WO CON HISTORY: Interstitial lung disease COMPARISON: [...] Electronically authenticated by: LAYTON SMALL Date: 2021-08-11 07:07[facility] Encounters Encounter DateEncounter TypeCare ProviderFacilityStart: 49-76-8192Bpdfsaqjm for preprocedural cardiovascular examinationPETER [facility] Start: 79-06-6431Nfaamlhah for preprocedural laboratory examinationPETER [facility] Hospitaltart: 06-25-2022 End: 86-27-4739jtwfdsrctjBD LAUREN BAÑUELOSFacility:Z9Hwfpt: 06-24-2022 End: 37-82-3066dpggnxzangWWZBLLakeland Community Hospitalcility:Y0Eivxq: 06-24-2022 End: 09-05-1225Biarzlira for preprocedural cardiovascular examinationPETER [facility] HOSPITALFacility:K3Qcguu: 06-18-2022 End: 40-61-2518zmcuzfzmioSI LAYTON SMALLFacility:Y4Tpvio: 05-28-2022 End: 17-74-3842gtpyjfdvfgNH LAUREN BAÑUELOSFacility:T8Xkvnu: 01-14-2022 End: 02-36-4591hvihkjykmgGR NICOLA HOY .Facility:H7Iedip: 02-60-2103Nysklwnst for general adult medical examination without abnormal findingsDR NICOLA HOY . [facility] 01-10-2022 End: 95-10-4461akozgijfxiGX NICOLA HOY .Facility:Y5Bcrvv: 01-10-2022 End: 82-36-7789Acskstzlm for general adult medical examination without abnormal findingsDR NICOLA HOY .Facility:A2Pohzx: 09-03-2021 End: 25-27-2286svnvfucpkgKJ DOCTOR MISCFacility:I4Vuwdx: 08-11-2021 End: 59-21-0050szizpwxxyzWZ NICOLA HOY .Facility:Q8Vxubx: 08-09-2021 End: 13-58-3043bxsifgjyiiIX DOCTOR MISCFacility:H1 Procedures DateProcedureProcedure DetailPerforming ClinicianStart: 74-64-3970ZNV screening DR NICOLA VALENCIA .Comment on above:Performed By: #### PSASC #### [facility] [address] [place] [address] Dr. Yanira Avery Plan of Treatment DateCare ActivityDetailAuthorStart: 47-37-3423xfzanbyvshAcatjvcikrFmryosss:H1 Payers DatePayer CategoryPayerPolicy [id number] 2..[id number] 2.840.1.724186.3.57[id number] 2.840.1.107049.3.57[id number] 2.840.1.609380.3.57[id number] 2.840.1.356629.3.57[id number] 2..840.1.027324.3.57[id number] 2.840.1.278978.3.57[id number] 2.840.1.513513.3.57[id number] 2.840.1.613738.3.57[id number] 2.840.1.953669.3.579.2.83260-62-8841Ondvljv Health [id number] [id number] Clinical Note 06-25-2022 Note Date & GnleEbjcOpxaosgu54-63-0289 NotePROCEDURE: XR FOOT LT MIN 3 VIEWS COMPARISON: 06/25/2022 HISTORY: Pain [...] Electronically authenticated by: LAUREN BAÑUELOS Date: 2022-06-25 18:11[facility] Clinical Note 06-18-2022 Note Date & UshbVpqfIlmeordo96-22-0369 NotePROCEDURE: XR FOOT LT MIN 3 VIEWS HISTORY: Pain ; follow-up [...] Electronically authenticated by: LAYTON SMALL Date: 2022-06-18 14:03[facility] Clinical Note 05-28-2022 Note Date & EkddOqqmGzwlhfce90-09-2716 NotePROCEDURE: XR ANKLE LT MIN 3 V, XR [...] Electronically authenticated by: LAUREN BAÑUELOS Date: 2022-05-28 11:04[facility] Clinical Note 05-28-2022 Note Date & ImszSagcUfncdfqh89-73-7416 NotePROCEDURE: XR ANKLE LT MIN 3 V, XR [...] Electronically authenticated by: LAUREN BAÑUELOS Date: 2022-05-28 11:04[facility] Clinical Note 05-28-2022 Note Date & PphjNnfuAqyjwaeo33-86-9709 NotePROCEDURE: XR ANKLE LT MIN 3 V, XR [...] Electronically authenticated by: LAUREN BAÑUELOS Date: 2022-05-28 11:04[facility] Summary Purpose Family History No Family History Records Found Advance Directives No Advanced Directives Records Found Additional Source Comments (unrecognized sect ion and content) No Status Records Found INFORMATION SOURCE (unrecogn ized section and content) DATE CREATED AUTHOR 07/06/2022 [facility] FOR RECORDS PERTAINING TO PATIENTS WHO ARE [...] BE BASED ON THE PRIMARY CLINICAL RECORDS. [facility]. provides no warranty or guarantee of the accuracy or completeness of information in this document.
--- OUTSIDE RECORDS SUMMARY | 2024-12-23 08:28 | XMS_ITS | Clinical Summary ---
Author Organization [facility] Address [address], [address] [place] [address] Care Team Providers Care Car Pusher Name Role Phone Rony Tomas MD Primary Care Provider [phone] Allergies No known active allergies Medications MedicationSigDispense QuantityRefillsLast FilledStart DateEnd DateStatus nabumetone (RELAFEN) 500 MG tablet Take 500 mg by mouth 2 times dailyActive Family History Medical HistoryRelationNameCommentsHeart DiseaseFatherArthritisMotherRelation NameStatusCommentsFatherMother Social History Tobacco UseTypesPacks/DayYears UsedDateSmoking Tobacco: NeverSmokeless Tobacco: CurrentChewSex and Gender InformationValueDate RecordedSex Assigned at BirthNot on fileLegal XeqAfxx2204/03/2012 11:24 AM ESTGender IdentityNot on fileSexual OrientationNot on file Last Filed Vital Signs Vital SignReadingTime TakenCommentsBlood Pressure--Pulse--Gelzeeuidrl52.4 ??C (97.5 ??F)03/08/2020 3:26 PM ESTRespiratory Rate--Oxygen Saturation--Inhaled Oxygen Concentration--Slkwch992.6 kg (235 lb)03/08/2020 3:26 PM YCWPuluxs032.3 cm (5' 11 )03/08/2020 3:26 PM ESTBody Mass Index32.78003/08/2020 3:26 PM EST Plan of Treatment Not on file Insurance Care Teams Team MemberRelationshipSpecialtyStart DateEnd Rony Tomas MD [address] [place] [address] PCP - GeneralFamily Medicine07/03/19
--- OUTSIDE RECORDS SUMMARY | 2024-12-23 08:28 | XMS_ITS | Clinical Summary ---
Author Organization [facility] Address [address] [address] Care Team Providers Care Hopper Filler Name Role Phone Unavailable Primary Care Provider Unavailabl e Social History Tobacco UseTypesPacks/DayYears UsedDateSmoking Tobacco: Never AssessedUT Safety & EnvironmentAnswerDate RecordedFear of Current or Ex-PartnerNot on file 04/15/2023Emotionally AbusedNot on file04/15/2023hysically AbusedNot on file 04/15/2023Sexually AbusedNot on file04/15/2023hysically or Sexually AbusedNot on file04/15/2023Sex and Gender InformationValueDate RecordedSex Assigned at BirthNot on fileLegal IjdYvvj9908/20/2021 10:30 PM EDTGender IdentityNot on file Sexual OrientationNot on file Plan of Treatment Not on file
--- OUTSIDE RECORDS SUMMARY | 2024-12-23 08:28 | XMS_ITS | Patient Health Record ---
Author Organization [facility] [place] Address [address] [place] [address] Care Team Providers Care Farmworker Bulbs Name Role Phone Yonas Tomas Primary Care Provider Allergies Allergen (clinical drug ingredient) Drug/Non Drug Allergy documented on EMR Reaction Allergy Type Onset Date Status KeflexUnknownDrug AllergyActiveShellfish (FN)Shellfish-derived ProductsUnknown Drug AllergyActive Reason For Referral No Information Medications Medication SIG (Take, Route, Frequency, Duration) Notes Start Date End Date Status ALPRAZolam 0.25 MG 1 tablet Orally TID; Duration : 7 04/15/2023Not-TakingPantoprazole Sodium 40 MG1 tablet 1/2 to 1 hour before morning meal Orally Once a day; Duration: 90 daysActiveIbuprofen 800 MG1 tablet with food or milk as needed Orally every 8 hrs; Duration: 30 days06/26/2022 ActiveMetoprolol Tartrate 25 MGTAKE ONE-HALF TABLET BY MOUTH TWICE DAILY; Duration: 90ActiveCetirizine HCl 10 MG1 tablet Orally Once a day; Duration: 90 days5ActiveAspirin 81 81 MG1 tablet Orally Once a dayActive Social History Tobacco Use: Social History Observation Description Date Details (start date - stop date) Never Smoker NA - NA Tobacco Use/Smoking Question Answer Notes Patient is a nonsmoker Alcohol Screen (Audit-C) Question Answer Notes Did you have a drink containing alcohol in the p ast year? No Lidvxi0UxbyhfzymkpjyqPofgzmqvVMSRR-Z (Standard) Question Answer Notes Did you have a drink containing alcohol in the p ast year? 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)Active confirmedProblemPain in left foot (403634243298442)Pain in left foot (M79.672) ActiveconfirmedProblemMetatarsal bone fracture (389279114)Fracture of unspecified metatarsal bone(s), left foot, subsequent encounter for fracture with routine healing (S92.302D)ActiveconfirmedProblemLate effect of fracture of lower extremities (91524492)Fracture of unspecified metatarsal bone(s), left foot, sequela (S92.302S)ActiveconfirmedProblemCrushing injury of foot (98994166) Crushing injury of left foot, initial encounter (S97.82XA)ActiveconfirmedProblem Late effect of crushing injury (37886111)Crushing injury of left foot, sequela (S97.82XS)ActiveconfirmedProblemExposure to communicable disease (199474505) Contact with and (suspected) exposure to other viral communicable diseases (Z20.828)ActiveconfirmedProblemCervical radiculopathy (72775758)Cervical radiculopathy (M54.12)ActiveconfirmedProblemAnxiety (59626843)Anxiety (F41.9) ActiveconfirmedProblemDyspnea (673858420)Dyspnea (R06.00)ActiveconfirmedProblem Hyperuricemia (89142046)Hyperuricemia (E79.0)ActiveconfirmedProblemFever (733268346)Fever (R50.9)ActiveconfirmedProblemBoil (45118524)Boil (L02.92)Active confirmedProblemLymphadenopathy (22962196)Lymphadenopathy (R59.1)Activeconfirmed ProblemViral bronchitis (50965664)Viral bronchitis (J20.8)ActiveconfirmedProblem Seasonal allergic rhinitis (792045725)Seasonal allergic rhinitis (J30.2)Active confirmedProblemCervical disc disorder (419256654)DDD (degenerative disc disease), cervical (M50.30)ActiveconfirmedProblemContact dermatitis (74675186) Contact dermatitis (L25.9)ActiveconfirmedProblemProlapsed cervical intervertebral disc (521316689)Cervical disc herniation (M50.20)Activeconfirmed ProblemFacial paresthesia (25716505)Facial paresthesia (R20.9)Activeconfirmed ProblemDiaphragmatic hernia (45418495)Sliding hiatal hernia (K44.9)Active confirmedProblemEssential hypertension (90091781)Essential (primary) hypertension (I10)ActiveconfirmedProblemChews tobacco (52949327)Chews tobacco (Z72.0)ActiveconfirmedProblemEssential hypertension (79210018)Essential Hypertension (I10)ActiveconfirmedProblemFuruncle of left lower limb (61468998948787247)Furuncle of left lower extremity (L02.426)Activeconfirmed ProblemAcquired respiratory distress syndrome (47783810)Acquired respiratory distress syndrome (J80)ActiveconfirmedProblemDiabetes mellitus (06903004) Diabetes mellitus (E11.9)ActiveconfirmedProblemPneumonia caused by Severe acute respiratory syndrome coronavirus (disorder) (298767108)Pneumonia due to Coronavirus disease 2019 (J12.82)ActiveconfirmedProblemDisease caused by Severe acute respiratory syndrome coronavirus 2 (disorder) (475152981)COVID (U07.1) ActiveconfirmedProblemClosed fracture of metatarsal bone (13782145)Closed fracture of neck of metatarsal bone of left foot, initial encounter (S92.302A) ActiveconfirmedProblemJuvenile osteochondrosis of lower extremity, excluding foot (008043695)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 Vital Signs Blood pressure diastolic 78 mm Hg 04/28/2024 Oudaem87 in04/28/2024lood pressure zogzkdnj984 mm Hg04/28/20240509Bxqder941.0 lbs 04/28/2024BMI34.31 kg/m204/28/2024 Encounters Encounter Location Date Provider Diagnosis [facility] [address] [facility] [place] [address] 02/11/2024 Yonas Hoy [facility] [place] [address] [facility] [place] [address]/Doug [facility] [place] [place] [facility] [place] [address]/06/2024[facility] Z[facility].00[facility] [place] [address]/08/2024 Yonas HoyEssential Hypertension I10 Assessments Encounter Date Diagnosis (ICD Code) Assessment Notes Treatment Notes Treatment Clinical Notes Section Notes 04/28/2024 Essential Hypertension (ICD-10 - I10) 09/26/2024Wellness examination (ICD-10 - Z00.00) Plan Of Treatment Pending Test Test Name Order Date CMP (COMPLETE METABOLIC PANEL) 4 HEMOGLOBIN A1C (GLYCO) 05/03/2023 LIPID PANEL (CHOL/TRIG/HDL/LDL) 05/03/19 CBC WITH DIFF 05/03/2023 PSA, PROSTATE-SPECIFIC ANTIGEN 4 CMP - Comprehensive Metabolic Panel 06/2024 CBC W/AUTO DIFF 09/26/2024 STOOL OCCULT BLOOD 09/26/2024 STOOL OCCULT BLOOD 05/03/2023 Covid-19 PCR (CVDTBH) 09/20/2023 GLYCOHEMOGLOBIN A1C 09/26/2024 LIPID PROFILE 09/26/2024 THYROID PANEL (T4/TSH/FREE T3) THYROID PANEL (T4/TSH/FREE T3) 4 PSA, SCREENING 09/26/2024 Insurance Providers Payer Name Payer Address Payer Phone Subscriber Number Group Number Insured Name Patient Relationship to Insured Coverage Start Date Coverage End Date [employer] JET [place]FF[place] [address] [place] [phone] [id number] Wild Vickersreemaed - patient is the [id number] [address] [address] [place] [id number]/05/2023ortWild cloudreemaed - patient is the insured Medications Administered Medication Instructions Date of Administration Dosage Notes Ceftriaxone 1 gram gKenalog-40020 mgKenalog-400 mg Medical (General) History Medical History History ICD Code high blood pressure CneijgjD11.00Acquired respiratory distress eibtgocdD10Rtangosnv due to Coronavirus disease 8386V46.82Contact with and (suspected) exposure to other viral communicable njaqxxrtR39.980BngdeO71.9Essential LvgmtkipazpcS52Wdaesca iwajgvjufmB66.9Periodic headache syndromes in child or adult, not intractable G43.I4Frmuuisv of left lower ejxhcjfdtH07.426Cervical disc prmobrzsozF12.20 Cervical ehkinwlzrjwpcX81.12DDD (degenerative disc disease), zovmnysjU79.30 Sliding hiatal wzdkcsM89.5LtchjzqbrypdkokN08.1Facial ivadcwtbgkdV63.9Chews ugitxhvY05.0Unspecified juvenile osteochondrosis of tibia and ittkqzQ57.50 Diabetes kmvusgxkF17.9Seasonal allergic zqamreyqL19.9QyhopkbqiuxciP38.0Surgical History Surgery Date(Month/Year) left foot orif Open Reduction Fixation of 5th - Dr Renner06/2022Monica Acharya
[2024-12-23 08:55] LABS: Hematocrit 44.5 % (42.0-54.0); Hemoglobin 15.4 g/dL (14.0-18.0); Immature Granulocytes Abs Auto 0.01 10^3/uL (0.00-0.03); Immature Granulocytes Pct Auto 0.2 % (0.0-0.5); Lymphocytes Absolute Auto 1.8 10^3/uL (1.2-3.8); Mean Corpuscular HGB Conc 34.6 g/dL (29.9-35.2); Mean Corpuscular Hemoglobin 31.1 pg (25.9-34.0); Mean Corpuscular Volume 89.9 fL (80.0-94.0); Platelet Count 240 10^3/uL (150-450); Red Blood Count 4.95 10^6/uL (4.70-6.10); White Blood Count 5.0 10^3/uL (4.0-11.0)
[2024-12-23 09:44] LABS: Alanine Aminotransferase 24 U/L (16-63); Albumin Globulin Ratio 1.1; Albumin Level 4.0 g/dL (3.4-5.0); Alkaline Phosphatase 75 U/L (46-116); Anion Gap 10.8; Aspartate Amino Transferase 16 U/L (15-37); Blood Urea Nitrogen 13.0 mg/dL (7.0-18.0); Calcium 9.4 mg/dL (8.5-10.1); Carbon Dioxide 30.4 mmol/L (21.0-32.0); Chloride 103 mmol/L (98-107); Cholesterol 188 mg/dL (<=200); Estimated GFR (African America >60 (>=60 mL/min/1.73m^2); Estimated GFR (Non-African Ame >60 (>=60 mL/min/1.73m^2); Free T3 3.44 pg/mL (2.18-3.98); Globulin 3.7 g/dL; Glucose 104 mg/dL (74-106); HDL Cholesterol 43 mg/dL (40-60); Potassium 4.2 mmol/L (3.5-5.1); Sodium 140 mmol/L (136-145); Thyroid Stimulating Hormone 1.043 uIU/mL (0.358-3.740); Total Protein 7.7 g/dL (6.4-8.2); Triglycerides 98 mg/dL (<=150); VLDL CHOLESTEROL 19.6 mg/dL
== END 2024-12-23 08:26 | disposition home or self-care (01) ==
LOC: LAB 08:25
PROVIDERS: PCP Family Medicine; Visit Provider Family Medicine
DX: Z00.00 Encounter for general adult medical examination without abnormal findings (principal); Z12.5 Encounter for screening for malignant neoplasm of prostate
CPT/HCPCS: 36415; 80053; 80061; 83036; 84436; 84443; 84481; 85025; G0103